=== PATIENT | female | born 1930 | race Caucasian/White ===

== ENCOUNTER 2017-01-09 11:00 | Outpatient (RCR) | END 2017-01-26 | LOC: NEWBEG 11:00 | PROVIDERS: ATTEND Psychiatry & Neurology Psychiatry | DX: F01.50 Vascular dementia, unspecified severity, without behavioral disturbance, psychotic disturbance, mood disturbance, and anxiety (principal); F41.9 Anxiety disorder, unspecified; F32.9 Major depressive disorder, single episode, unspecified | CPT/HCPCS: 90792 ==

== ENCOUNTER 2019-03-24 14:58 | Inpatient (IN) ==
[2019-03-24] MEDS ORDERED: NITROSTAT SL PRN (15:16)
[2019-03-24] MEDS ORDERED: ATROPINE SULFATE PFS IVP PRN (15:16)
[2019-03-24] MEDS ORDERED: TYLENOL PO PRN (15:16)
[2019-03-24] MEDS ORDERED: VISTARIL INJ IM PRN (15:16)
[2019-03-24] MEDS ORDERED: LASIX IVP STA (15:22)
[2019-03-24 16:21] VITALS: BMI 22.5
[2019-03-24] MEDS: K-DUR PO SCH (16:51)
[2019-03-24] MEDS: XANAX PO SCH (16:51)
--- NOTE | 2019-03-24 16:54 | DI ---
EXAM: Chest two views HISTORY: Shortness of air COMPARISON: None TECHNIQUE: Two views of the chest were performed FINDINGS: No airspace consolidation. Granulomas calcification. Bilateral peripheral scarring and/o r fibrosis suggested. There is no pleural effusion or pneumothorax. The heart is normal in size. T he mediastinal contour is normal. Questionable age indeterminate compression deformities in the lumb ar spine are very poorly visualized. IMPRESSION: 1. No acute cardiopulmonary process. Bilateral peripheral scarring and/or fibrosis suggested. 2. Questionable age indeterminate compression deformities in the lumbar spine are very poorly visual ized
[2019-03-24] MEDS: LEVODOPA PO SCH (17:10)
[2019-03-24] MEDS: CARBIDOPA PO SCH (17:10)
[2019-03-24] MEDS ORDERED: LASIX ONE (18:12)
[2019-03-24] MEDS ORDERED: NON-FORMULARY MEDICATION (Amantadine Hcl [Amantadine] 100 MG) PO SCH (21:00)
[2019-03-24] MEDS ORDERED: NON-FORMULARY MEDICATION (Paroxetine Hcl [Paxil] 30 MG) PO SCH (21:00)
[2019-03-24] MEDS: ARICEPT PO SCH (21:13)
[2019-03-24] MEDS: PRAVACHOL PO SCH (21:15)
[2019-03-24] MEDS: PIMAVANSERIN TARTRATE 34 MG PO SCH (21:15)
[2019-03-24] MEDS: SYMMETREL PO SCH (21:15)
[2019-03-24] MEDS: PAXIL PO SCH (21:15)
[2019-03-24] MEDS: LOPRESSOR PO SCH (21:15)
[2019-03-25] MEDS: SYMMETREL PO SCH ×2 (08:47→20:40)
[2019-03-25] MEDS: ASPIRIN EC PO SCH (08:47)
[2019-03-25] MEDS: VITAMIN D PO SCH (08:47)
[2019-03-25] MEDS: LOPRESSOR PO SCH ×2 (08:49→20:40)
[2019-03-25] MEDS: CLARITIN PO SCH (08:49)
[2019-03-25] MEDS: K-DUR PO SCH ×5 (08:49→20:41)
[2019-03-25] MEDS: MEGACE PO SCH (08:50)
[2019-03-25] MEDS: PLAVIX PO SCH (08:50)
[2019-03-25] MEDS: NORVASC PO SCH (08:50)
[2019-03-25] MEDS: DITROPAN PO SCH ×3 (08:50→20:41)
[2019-03-25] MEDS: XANAX PO SCH ×3 (08:51→17:27)
[2019-03-25] MEDS ORDERED: NON-FORMULARY MEDICATION (Cholecalciferol (Vitamin D3) [Vitamin D3] 1 CAP) PO SCH (09:00)
[2019-03-25] MEDS ORDERED: NON-FORMULARY MEDICATION (Amlodipine Besylate [Amlodipine Besylate] 10 MG) PO SCH (09:00)
[2019-03-25] MEDS ORDERED: FEXOFENADINE HCL 180 MG PO SCH (09:00)
[2019-03-25] MEDS ORDERED: ARICEPT PO SCH (09:00)
[2019-03-25] MEDS: LEVODOPA PO SCH ×3 (09:59→17:27)
[2019-03-25] MEDS: CARBIDOPA PO SCH ×3 (09:59→17:27)
[2019-03-25] MEDS: D3 PO SCH (10:05)
[2019-03-25] MEDS: [UNRECOGNIZED DRUG - OTHER] PO SCH (10:05)
[2019-03-25] MEDS: MAGNESIUM PO SCH (10:05)
[2019-03-25] MEDS: CALCIUM CARB PO SCH (10:05)
[2019-03-25] MEDS: ZINC PO SCH (10:05)
[2019-03-25] MEDS: CYANOCOBALAMIN PO SCH (10:06)
--- NOTE | 2019-03-25 13:25 | RS.PTINEVL ---
Subjective - Patient information Date of Evaluation: 03/25/19 Date of Arrival on Unit: 03/24/19 Admitted From:: Home Diagnosis: increased confusion, agitation Usual Living Arrangement: daughter Living Arrangement Comments: pt had been living in [place], however pt had to leave due to increased agitation and combativeness. Currently living with dtr. Home Environment: House, Stairs (few), Rail Medical History: CVA/TIA, Dementia, Arthritis Medical History Comments:: anxiety, depression, atrial flutter, DDD, hypothyroid , Parkinson's disease, LATEX ALLERGY?: No Medications: see chart Subjective Information/ Patient Comments:: pt states that she would like to try to walk. - Level of function Prior to this admission, the patient could do the following:: Partially Dependent Ambulation Current Level of Function: Partially Dependent Current Equipment Used at Home: cane, walker, shower chair, Interventions - Objective Patient Orientation: Person, Place Current Interventions: IV's Range of Motion - ROM Right Upper Extremity AROM: WFL's Left Upper Extremity AROM: WFL's Right Lower Extremity AROM: WFL's Left Lower Extremity AROM: WFL's Muscle Strength - Muscle Strength Right Upper Extremity Strength: Mild Weakness (grossly 4-/5,) Left Upper Extremity Strength: Mild Weakness (grossly 4-/5) Right Lower Extremity Strength: Mild Weakness (hip flex 3+/5, knee flex/ext 4-/5 , ankle DF/PF 4-/5) Left Lower Extremity Strength: Mild Weakness (hip flex 3+/5, knee flex/ext 4-/5 , ankle DF/PF 4-/5) Sensation - Sensation Right Upper Extremity Sensation: Intact/Normal Left Upper Extremity Sensation: Intact/Normal Right Lower Extremity Sensation: Intact/Normal Left Lower Extremity Sensation: Intact/Normal Palpation Palpation Findings: None/Normal Balance - Sitting Balance and Reactions Static Sitting Balance: Fair Dynamic Sitting Balance: Fair Sitting Equilibrium Reactions: Delayed Left, Delayed Right Sitting Protective Reactions: Delayed Left, Delayed Right - Standing Balance and Reactions Static Standing Balance: Poor Dynamic Standing Balance: Poor Standing Equilibrium Reactions: Delayed Left, Delayed Right Standing Protective Reactions: Delayed Left, Delayed Right Functional Mobility - Bed Mobility Rolling R/L: Min Assist Scooting: Min Assist Supine to Sit: Min Assist, 1 person assist - Transfers Sit to Stand: Min Assist, 2 person assist Stand to Sit: Min Assist, 1 person assist - Safety Awareness Safety Awareness: Poor AMRIT INDEX SCORE: n/a Ambulation - Ambulation Assistive Device Used: Rolling Walker Orthotic/Prosthetic Device: No Distance: 50ft x 2 with 1 seated rest period Assistance needed with Ambulation: Min Assist, 1 person assist, 2 person assist Gait Deviations: Forward posture, Short stride, Deviates from path Factors Affecting Ambulation: Decreased Balance, Weakness, Decreased Coordination, Decreased Safety, Cognitive Status, Limited Endurance Treatment time - Time with patient Length of Evaluation: 21 Total treatment time: 28 Patient Education - Education Patient Education: Activity Modification, Education of Plan of Care Teaching Recipient: Patient Teaching Methods: Discussion Assessment - Assessment Problem List:: Decreased level of function, Requires training/education, Decreased safety/Risk of falls, Weakness, Cognitive status limits abilities Rehab Potential: Fair Further Therapy Indicated?: Yes Candidate for Swing Bed for Therapy Services?: Feel pt may not be a candidate for swing bed due to cogntive status and prior level of function. Evaluation Complexity: HISTORY: Medium, EXAM OF BODY SYSTEMS: Medium, CLINICAL PRESENTATION: Medium, CLINICAL DECISION MAKING: Medium Short Term Goals GOAL #1: pt independent with initial HEP Goal to be met by: 03/28/19 GOAL #2: pt transfer sup to/from sit min to CGA x 1 Goal to be met by: 03/28/19 GOAL #3: Sit to/from stand min x 1 Goal to be met by: 03/28/19 GOAL #4: pt amb with rwx min x 1 80ft without rest period. Goal to be met by: 03/28/19 Gas Operation Manager Goals GOAL #1: pt transfers sit to/from stand CGA Goal to be met by: 03/30/19 GOAL #2: pt amb functional household distance with rwx CGA x 1 no LOB Goal to be met by: 03/30/19 GOAL #3: Improve dyn stand balance fair Goal to be met by: 03/30/19 Plan Plan of Care: Therapeutic EX, Therapeutic Activity Other:: gait training Frequency of Treatment: 1-2 X day, as tolerated Duration of Treatment: 6 days Anticipated Discharge Destination: Home Treatment Diagnosis (ICD 10 Codes): balance impaired R26.81. difficulty walking R 26.2 Has the Physician been added for Co-signature?: Yes
--- NOTE | 2019-03-25 14:35 | RS.OTINEVL ---
Subjective - Patient information Date of Evaluation: 03/25/19 Diagnosis: increased confusion, UTI PRECAUTIONS: At risk for fainting spells Usual Living Arrangement: With Others Living Arrangement Comments: Pt was living at [facility] and she became aggitated and had to move out to her daughters house. She has lived at her daughter's for the past 2 weeks. Pt has forgotten how to transfer, and take care of herself. Medical History Comments:: UTI, weakness, increased confusion, Leg edema, dizziness, has psychological problems where she will faint. Medications: "I am getting a little dizzy." - Level of function Prior to this admission, the patient could do the following:: Partially Dependent Ambulation Abilities prior to this admission: Pt was living at [facility] prior to living with her daughter. Pt uses a rolling walker at home. Current Level of Function: Partially Dependent Current Equipment Used at Home: cane, walker, shower chair, Pain Assessment - Pain Pain Score: 0 Interventions - Objective Patient Orientation: Person Current Interventions: IV's, Telemetry Observation: Pt is weak and confused and requires verbal cues to complete turn around and tranfers with RW. Pt requires verbal cues for all self cares. Interventions - ROM Right Upper Extremity AROM: WFL's Left Upper Extremity AROM: WFL's - Strength Right Upper Extremity Strength: Mild Weakness Left Upper Extremity Strength: Mild Weakness - Sensation Right Upper Extremity Sensation: Intact/Normal Left Upper Extremity Sensation: Intact/Normal Balance - Sitting Balance Static Sitting Balance: Poor Dynamic Sitting Balance: Poor - Standing Balance Static Standing Balance: Poor Dynamic Standing Balance: Poor ADL Skills - Self Feeding Self Feeding: Set Up Only - Grooming Grooming: Min Assist - Toilet Management Toileting Management: Min Assist Functional Mobility - Bed Mobility Rolling R/L: Min Assist Scooting: Min Assist Supine to Sit: Min Assist Sit to Supine: Min Assist - Transfers Sit to Stand: Mod Assist, 2 person assist Stand to Sit: Mod Assist, 2 person assist Stand Pivot Transfers: Min Assist, 2 person assist Comments:: Pt has 2 people assist due to the fainting without notice. - Ambulation Weight Bearing Status: FWB Assistive Device Used: Rollator Assistance needed with Ambulation: Min Assist - Safety Awareness Safety Awareness: Poor AMRIT INDEX SCORE: . Additional Treatment Performed - Time with patient Length of Evaluation: 25 Total treatment time: 30 Activities Do you enjoy playing games?: No Would you be interested in leaving your room for activities?: No Would you enjoy group activities?: No Do you have difficulty with your vision?: Yes Patient Interests:: Watching Television Patient Education Patient Education: Education of diagnosis, Home Exercise Program, Education of Plan of Care Teaching Recipient: Patient Teaching Methods: Discussion Assessment Problem List:: Decreased level of function, Requires training/education, Decreased safety/Risk of falls, Weakness Rehab Potential: Good Further Therapy Indicated?: Yes Evaluation Complexity: HISTORY: Medium, EXAM OF BODY SYSTEMS: Medium, CLINICAL DECISION MAKING: Medium Short Term Goals - Goals GOAL 1: Pt to increase Sit to stand to Min Assist with rollator walker for self car Goal to be met by: 03/30/19 GOAL 2: Pt to complete toileting CGA with rollator. Goal to be met by: 03/30/19 GOAL 3: Pt to increase activity tolerance to 10 minutes. Goal to be met by: 03/30/19 Shop Router Goals GOAL 1: Pt to increase to SUP for self care management. Goal to be met by: 04/01/19 GOAL 2: Pt to complete toileting Mod-I with rollator. Goal to be met by: 04/01/19 GOAL 3: Pt to increase activity tolerance to 10 minutes. Goal to be met by: 04/01/19 Plan Plan of Care: Therapeutic EX, Neuromuscular Re-Educ, Therapeutic Activity, Self- Care/Home Management Frequency of Treatment: 1-2 X day, as tolerated Duration of Treatment: 1 Week Anticipated [facility]charge [facility] Treatment Diagnosis (ICD 10 Codes): M62.81 General weakness, Z74.1 Need for assistance with personal care. Has the Physician been added for Co-signature?: Yes
[2019-03-25] MEDS: ARICEPT PO SCH (20:40)
[2019-03-25] MEDS: PIMAVANSERIN TARTRATE 34 MG PO SCH (20:41)
[2019-03-25] MEDS: PRAVACHOL PO SCH (20:41)
[2019-03-25] MEDS: PAXIL PO SCH (20:41)
[2019-03-26] MEDS: CARBIDOPA PO SCH ×3 (09:18→16:37)
[2019-03-26] MEDS: LEVODOPA PO SCH ×3 (09:18→16:37)
[2019-03-26] MEDS: VITAMIN D PO SCH (09:19)
[2019-03-26] MEDS: ASPIRIN EC PO SCH (09:19)
[2019-03-26] MEDS: MEGACE PO SCH (09:19)
[2019-03-26] MEDS: CLARITIN PO SCH (09:20)
[2019-03-26] MEDS: K-DUR PO SCH ×2 (09:20→16:38)
[2019-03-26] MEDS: PLAVIX PO SCH (09:20)
[2019-03-26] MEDS: LOPRESSOR PO SCH ×2 (09:20→20:52)
[2019-03-26] MEDS: NORVASC PO SCH (09:20)
[2019-03-26] MEDS: SYMMETREL PO SCH ×2 (09:20→20:51)
[2019-03-26] MEDS: DITROPAN PO SCH ×3 (09:20→20:51)
[2019-03-26] MEDS: XANAX PO SCH ×3 (09:20→16:37)
[2019-03-26] MEDS: MAGNESIUM PO SCH (09:21)
[2019-03-26] MEDS: CALCIUM CARB PO SCH (09:21)
[2019-03-26] MEDS: D3 PO SCH (09:21)
[2019-03-26] MEDS: ZINC PO SCH (09:21)
[2019-03-26] MEDS: [UNRECOGNIZED DRUG - OTHER] PO SCH (09:21)
[2019-03-26] MEDS: CYANOCOBALAMIN PO SCH (09:22)
[2019-03-26] MEDS: PIMAVANSERIN TARTRATE 34 MG PO SCH (20:50)
[2019-03-26] MEDS: ARICEPT PO SCH (20:51)
[2019-03-26] MEDS: PRAVACHOL PO SCH (20:51)
[2019-03-26] MEDS: PAXIL PO SCH (20:51)
[2019-03-27] MEDS: ASPIRIN EC PO SCH (08:06)
[2019-03-27] MEDS: K-DUR PO SCH ×2 (08:06→16:45)
[2019-03-27] MEDS: VITAMIN D PO SCH (08:06)
[2019-03-27] MEDS: LOPRESSOR PO SCH ×2 (08:06→20:35)
[2019-03-27] MEDS: PLAVIX PO SCH (08:06)
[2019-03-27] MEDS: CLARITIN PO SCH (08:07)
[2019-03-27] MEDS: XANAX PO SCH ×3 (08:07→16:45)
[2019-03-27] MEDS: SYMMETREL PO SCH ×2 (08:07→20:35)
[2019-03-27] MEDS: MEGACE PO SCH (08:07)
[2019-03-27] MEDS: NORVASC PO SCH (08:07)
[2019-03-27] MEDS: DITROPAN PO SCH ×3 (08:07→20:35)
[2019-03-27] MEDS: LEVODOPA PO SCH ×3 (08:08→17:16)
[2019-03-27] MEDS: CARBIDOPA PO SCH ×3 (08:08→17:16)
[2019-03-27] MEDS: CALCIUM CARB PO SCH (08:08)
[2019-03-27] MEDS: CYANOCOBALAMIN PO SCH (08:08)
[2019-03-27] MEDS: D3 PO SCH (08:08)
[2019-03-27] MEDS: [UNRECOGNIZED DRUG - OTHER] PO SCH (08:08)
[2019-03-27] MEDS: ZINC PO SCH (08:08)
[2019-03-27] MEDS: MAGNESIUM PO SCH (08:08)
[2019-03-27] MEDS: CIPRO PO SCH ×2 (11:05→20:35)
[2019-03-27] MEDS: PAXIL PO SCH (20:34)
[2019-03-27] MEDS: PRAVACHOL PO SCH (20:35)
[2019-03-27] MEDS: ARICEPT PO SCH (20:35)
[2019-03-27] MEDS: PIMAVANSERIN TARTRATE 34 MG PO SCH (20:36)
[2019-03-28] MEDS: CIPRO PO SCH (05:39)
[2019-03-28] MEDS: CARBIDOPA PO SCH ×2 (09:08→13:03)
[2019-03-28] MEDS: XANAX PO SCH ×2 (09:08→13:03)
[2019-03-28] MEDS: LEVODOPA PO SCH ×2 (09:08→13:03)
[2019-03-28] MEDS: VITAMIN D PO SCH (09:09)
[2019-03-28] MEDS: NORVASC PO SCH (09:09)
[2019-03-28] MEDS: SYMMETREL PO SCH (09:09)
[2019-03-28] MEDS: DITROPAN PO SCH ×2 (09:10→15:11)
[2019-03-28] MEDS: K-DUR PO SCH (09:10)
[2019-03-28] MEDS: ASPIRIN EC PO SCH (09:10)
[2019-03-28] MEDS: MEGACE PO SCH (09:10)
[2019-03-28] MEDS: PLAVIX PO SCH (09:10)
[2019-03-28] MEDS: D3 PO SCH (09:11)
[2019-03-28] MEDS: ZINC PO SCH (09:11)
[2019-03-28] MEDS: CYANOCOBALAMIN PO SCH (09:11)
[2019-03-28] MEDS: CLARITIN PO SCH (09:11)
[2019-03-28] MEDS: CALCIUM CARB PO SCH (09:11)
[2019-03-28] MEDS: [UNRECOGNIZED DRUG - OTHER] PO SCH (09:11)
[2019-03-28] MEDS: MAGNESIUM PO SCH (09:11)
[2019-03-28] MEDS: LOPRESSOR PO SCH (09:11)
--- NOTE | 2019-03-28 09:31 | PCM.PROG ---
Attending Provider: ATTENDING PROVIDER: Dr. GIOVANNY KAPOOR This patient is seen with Rose Gaitan, Nurse Practitioner. DATE OF SERVICE: 03/28/19 SUBJECTIVE: This 88 year old WHITE/ F was hospitalized 03/24/19. The patient is pleasantly confused. She is on Cipro for UTI and doing well. We will anticipate DC to custodial today for PT/OT. REVIEW OF SYSTEMS: CONSTITUTIONAL: No night sweats. No fatigue, malaise, lethargy. No fever or chills. HEENT: Eyes: No visual changes. No eye pain. No eye discharge. ENT: No runny nose. No epistaxis. No sinus pain. No odynophagia. No congestion. RESPIRATORY: No cough, no congestion. No hemoptysis. No shortness of breath. CARDIOVASCULAR: No angina symptoms. No CHF symptoms. No atypical chest pain for CAD. No palpitations. No orthopnea.. GASTROINTESTINAL: No abdominal pain. No nausea or vomiting. No diarrhea or constipation. No hematemesis. No hematochezia. GENITOURINARY: No urgency. No frequency. No dysuria. No hematuria. No obstructive symptoms. No discharge. No pain. No significant abnormal bleeding. MUSCULOSKELETAL: No musculoskeletal pain; no joint swelling. NEUROLOGICAL: Awake, alert, oriented to time, place and person. No headache. No neck pain. No syncope. No seizures. No dizziness. PSYCHIATRIC: Not anxious. No depression. No suicidal thoughts. No homicidal thoughts. Confused. SKIN: No rash. No lesions. No wounds. ENDOCRINE: No unexplained weight loss. No weight gain. HEMATOLOGIC/LYMPHATIC: No anemia. No purpura. No petechiae. No prolonged or excessive bleeding. No palpable lymph nodes. PHYSICAL EXAMINATION: GENERAL: The patient is awake, alert and oriented, lying in bed in no distress. VITAL SIGNS: Temperature 98.1 F, Pulse 65, Respiratory Rate 16, BP 117/63, Pulse Ox 97% HEENT: Head normocephalic, atraumatic. Eyes: Extraocular muscles are intact. Pupils are equal, round and reactive to light and accommodation. Ears: No lesions. Nose appeared normal. Throat: No exudate or erythema. NECK: Supple. No JVD, no carotid bruit. No lymphadenopathy or thyromegaly. LUNGS: Diminished breath sounds. Clear to auscultation. Percussion note normal. Chest symmetrical. HEART: S1, S2, no S3. No murmurs. No cyanosis or clubbing. No ascites. Pulses: Dorsalis pedis and posterior tibial pulses +1 to +2 both sides. ABDOMEN: Soft. Non-tender. Bowel sounds active. No CVA tenderness. No mass felt. EXTREMITIES: No edema. Full range of motion of all extremities, equal. NEUROLOGIC: No focal deficit. Cranial nerves II through XII are grossly intact. No headache, no double vision or headache. SKIN: Not dry. Intact. Turgor-normal. LYMPHATIC: No palpable lymph nodes/no lymphedema. MUSCULOSKELETAL: Normal joints with no swelling. Muscle tone is normal. LAB REVIEW: 03/28/19 04:00 03/28/19 04:00 03/28/19 04:00: Sodium 136.9, Potassium 4.29, Chloride 108.5 H, Carbon Dioxide 25.4, Anion Gap 7.29, BUN 19.5 H, Creatinine 0.90, Estimated GFR (MDRD) 59.00, BUN/Creatinine Ratio 21.66, Glucose 83.9, Calcium 8.48, Total Bilirubin 0.43, AST 28.4, ALT 17.7, Alkaline Phosphatase 72.8, Total Protein 6.29 L, Albumin 3.34 L, Globulin 2.95, Albumin/Globulin Ratio 1.13 03/28/19 04:00: WBC 5.73, RBC 3.99 L, Hgb 12.2, Hct 36.6 L, MCV 91.7, MCH 30.6, MCHC 33.3, RDW Coeff of Max 12.3, Plt Count 271, Immature Gran % (Auto) 0.3, Neut % (Auto) 44.5, Lymph % (Auto) 36.5, Kinney % (Auto) 13.8 H, Eos % (Auto) 4.0 , Baso % (Auto) 0.9, Immature Gran # (Auto) 0.0, Neut # (Auto) 2.6, Lymph # ( Auto) 2.1, Kinney # (Auto) 0.8, Eos # (Auto) 0.2, Baso # (Auto) 0.1 ASSESSMENT: Please see below. 1. UTI 2. Increased confusion, improved 3. Leg edema 4. Dementia with behavioral disturbances 5. Generalized weakness. PLAN: 1. Discharge to [facility] 2. Cipro 500mg BID for 5 days 3. Continue all home medications. 4. Lesion on right side of lesion on right side of now will refer to dermatology Plan and coordination of the patient's care discussed in the presence of Financial Sales Representative and nurse. SCRIBED BY: Lucy SUBRAMANIANist scribed while in presence of service performed by Dr. Kapoor/Rose Gaitan APRN on 03/28/19 ([id number])
--- NOTE | 2019-03-28 12:16 | CM.DICTOOL ---
ADMISSION: 03/24/19 14:58 DISCHARGE: 2018 DATE OF SERVICE: 03/28/19 FINAL DIAGNOSIS UTI - KLEBSIELLA PNEUMONIA INCREASED CONFUSION, IMPROVED LEG EDEMA DEMENTIA W/ BEHAVIORAL DISTURBANCES GENERALIZED WEAKNESS MACULAR DEGENERATION CATARACTS ANEMIA HX. FAILURE TO THRIVE HTN ORTHOSTATIC HYPOTENSION IRREGULAR HEART RHYTHM DYSLIPIDEMIA PARKINSON'S DEMENTIA W/ BEHAVIOR DISTURBANCE ASTHMA SLEEP APNEA OA DJD HYPOTHYROIDISM DEPRESSION/ANXIETY URINARY FREQ/URGENCY LAST VITALS Temp Pulse Resp BP Pulse Ox 98.1 F 65 16 117/63 97 03/28/19 04:52 03/28/19 04:52 03/28/19 04:52 03/28/19 04:52 03/28/19 04:52 TAKE THESE MEDICATIONS AT HOME Acetaminophen (Tylenol) 500 mg PO Q4H PRN PRN Reason: PAIN Alprazolam (Xanax) 0.25 mg PO 0800,1200,1700 [facility] Last Admin: 03/28/19 09:08 Dose: 0.25 mg Amantadine HCl (Symmetrel) 100 mg PO BID [facility] Last Admin: 03/28/19 09:09 Dose: 100 mg Amlodipine Besylate (Norvasc) 10 mg PO DAILY [facility] Last Admin: 03/28/19 09:09 Dose: 10 mg Cholecalciferol (Vitamin D) 1,000 unit PO DAILY [facility] Last Admin: 03/28/19 09:09 Dose: 1,000 unit Ciprofloxacin (Cipro) 500 mg PO BIDCIPRO [facility] Stop: 04/03/19 10:38 Last Admin: 03/28/19 05:39 Dose: 500 mg Clopidogrel Bisulfate (Plavix) 75 mg PO DAILY [facility] Last Admin: 03/28/19 09:10 Dose: 75 mg Donepezil HCl (Aricept) 10 mg PO BEDTIME [facility] Last Admin: 03/27/19 20:35 Dose: 10 mg Loratadine (Claritin) 10 mg PO DAILY [facility] Last Admin: 03/28/19 09:11 Dose: 10 mg Fexofenadine HDL 180 mg PO DAILY [facility] Last Admin: n/a Megestrol Acetate (Megace) 40 mg PO DAILY [facility] Last Admin: 03/28/19 09:10 Dose: 40 mg Metoprolol Tartrate (Lopressor) 25 mg PO BID [facility] Last Admin: 03/28/19 09:11 Dose: 25 mg Antiox.Mv No.10/Omeg3s/Lut/Manju [I-Caps With Lutein-Brooten 3 Sfg]) 1 cap PO DAILY [facility] Last Admin: 03/28/19 09:08 Dose: 1 cap Calcium Carb/D3/Magnesium/Zinc [Kmmpnsx-Mch-Vdoy-Vit D Tablet]) 1 cap PO DAILY [facility] Last Admin: 03/28/19 09:11 Dose: Not Given Carbidopa/Levodopa [Sinemet 10-100 Mg Tablet]) 1 cap PO 0800,1200,1700 [facility] Last Admin: 03/28/19 09:08 Dose: 1 cap Cyanocobalamin (Vitamin B-12) [Vitamin B-12]) 1 cap PO DAILY [facility] Last Admin: 03/28/19 09:11 Dose: Not Given Krill/Om-3/Dha/Epa/Phospho/Ast [Megared Brooten-3 Krill Oil Sfgl]) 350 mg PO DAILY [facility] Last Admin: 03/28/19 09:11 Dose: Not Given Pimavanserin Tartrate [Nuplazid]) 34 mg PO BEDTIME [facility] Last Admin: 03/27/19 20:36 Dose: 34 mg Oxybutynin Chloride (Ditropan) 5 mg PO TID [facility] Last Admin: 03/28/19 09:10 Dose: 5 mg Paroxetine HCl (Paxil) 30 mg PO BEDTIME [facility] Last Admin: 03/27/19 20:34 Dose: 30 mg Potassium Chloride (K-Dur) 20 meq PO BIDWM [facility] Last Admin: 03/28/19 09:10 Dose: 20 meq Pravastatin Sodium (Pravachol) 20 mg PO BEDTIME [facility] Last Admin: 03/27/19 20:35 Dose: 20 mg ALLERGIES epinephrine Adverse Reaction (Verified 03/24/19 16:13) lidocaine Adverse Reaction (Uncoded 03/24/19 16:13) DISCONTINUED MEDICATIONS None NEW PRESCRIPTIONS: CIPRO 500 MG ONE TABLET BY MOUTH TWICE A DAY FOR FIVE DAYS LAST DOSES TO BE ADMINISTERED ON ThursdayMarch XANAX 0.25 MG ONE TABLET BY MOUTH THREE TIMES A DAY. TIMES TO BE ADMINISTERED 0800, 1200, 1700. SMOKING: NON SMOKER DISEASE SPECIFIC EDUCATION: UTI LEG EDEMA ELEVATE EXTREMITIES CONFUSION/DEMENTIA CIPRO REFERRAL TO DR. [facility] LAB REVIEW: 03/28/19 04:00 03/28/19 04:00 03/28/19 04:00: Sodium 136.9, Potassium 4.29, Chloride 108.5 H, Carbon Dioxide 25.4, Anion Gap 7.29, BUN 19.5 H, Creatinine 0.90, Estimated GFR (MDRD) 59.00, BUN/Creatinine Ratio 21.66, Glucose 83.9, Calcium 8.48, Total Bilirubin 0.43, AST 28.4, ALT 17.7, Alkaline Phosphatase 72.8, Total Protein 6.29 L, Albumin 3.34 L, Globulin 2.95, Albumin/Globulin Ratio 1.13 03/28/19 04:00: WBC 5.73, RBC 3.99 L, Hgb 12.2, Hct 36.6 L, MCV 91.7, MCH 30.6, MCHC 33.3, RDW Coeff of Max 12.3, Plt Count 271, Immature Gran % (Auto) 0.3, Neut % (Auto) 44.5, Lymph % (Auto) 36.5, Benton % (Auto) 13.8 H, Eos % (Auto) 4.0 , Baso % (Auto) 0.9, Immature Gran # (Auto) 0.0, Neut # (Auto) 2.6, Lymph # ( Auto) 2.1, Benton # (Auto) 0.8, Eos # (Auto) 0.2, Baso # (Auto) 0.1 PLAN: DISCHARGE TO [facility] TODAY 2018 DIET: REGULAR WITH THIN LIQUIDS ENCOURAGE FLUIDS ACTIVITY: UP TO DINING FOR MEALS VITAL SIGNS DAILY FOR ONE WEEK, THEN WEEKLY WEIGHT MONTHLY CBC WITH DIFF, CMP IN ONE WEEK CBC WITH DIFF AND CMP EVERY 3 MONTHS TSH, LIPIDS EVERY 6 MONTHS PT/OT EVALUATE AND TREAT SPEECH THERAPY CONSULT PORCELAIN ENAMELER CONSULT FOR OPTIMAL NUTRITION INTAKE INCONTINENT CARE NEEDED DECUBITUS PRECAUTIONS NEEDED MAY PARTICIPATE IN HALFWAY ACTIVITY PROGRAM PATIENT TO BE SEEN ON HALFWAY ROUNDS BY ROSE THOMPSON APRN IN 7-10 DAYS. AN APPOINTMENT HAS BEEN SCHEDULED WITH DR. MYRA GALE (HOSPICE/HOME HEALTH AIDE) AT [facility] ON ThursdayMarch, AT 9 AM. FAMILY REQUESTED REFERRAL RELATED TO A SMALL RED LESION ON THE RIGHT SIDE OF HER NOSE. [facility] [address] [place] [id number] CODE STATUS: DO NOT RESUSCITATE MS. AVENDAÑO IS ALERT AND ORIENTED TO SELF. SHE IS PLEASANTLY CONFUSED THIS MORNING. NO EPISODES OF AGITATION OR BEHAVIORAL OUTBURSTS HAVE BEEN NOTED DURING THIS ADMISSION. NO COMPLAINTS OF DIZZINESS. GENERALIZED WEAKNESS IS NOTED. I HAVE SPOKEN WITH YOVANY (DAUGHTER/POA) SHE IS AGREEABLE WITH HER MOMS DISCHARGE TO [facility] FOR PHYSICAL AND OCCUPATIONAL THERAPY FOR SHORT TERM REHAB. YOVANY STATES HER GOAL IS TO HAVE HER MOM GET STRONGER THEN MOVE HER TO A "LOCKED SUPPORTIVE LIVING" FACILITY. MS. MCADAMS IS ABLE TO FEED HERSELF AND IS TOLERATING A REGULAR DIET WITHOUT ANY DIFFICULTY. SHE IS ALSO ABLE TO TAKE HER MEDICATIONS WHOLE WITH WATER WITHOUT DIFFICULTY. SHE AMBULATES WITH ONE ASSIST AND A ROLLING WALKER, GAIT IS UNSTEADY WITH SHUFFLING ALSO NOTED. SHE DENIES BURNING UPON URINATION AND WILL CONTINUE TO RECEIVE ORAL CIPRO ON DISCHARGE FOR A TOTAL LENGTH OF SEVEN DAYS. HYDRATION STATUS IS ADEQUATE BUT SHE DOES NEED ENCOURAGEMENT TO DRINK THROUGHOUT THE DAY. SHE IS NORMALLY CONTINENT OF BOWEL AND BLADDER, LAST BM 03/27. APPETITE IS GOOD. SKIN IS INTACT. Torito Hare M.D. Rose Thompson APRN
[2019-03-28 15:30] VITALS: BP 116/62; TEMP 98.3
--- NOTE | 2019-04-05 14:52 | DS ---
DATE OF SERVICE: 03/28/19 FINAL DIAGNOSIS: 1. UTI - KLEBSIELLA PNEUMONIA 2. INCREASED CONFUSION, IMPROVED 3. LEG EDEMA 4. DEMENTIA W/ BEHAVIORAL DISTURBANCES 5. GENERALIZED WEAKNESS 6. MACULAR DEGENERATION 7. CATARACTS 8. ANEMIA 9. HISTORY. FAILURE TO THRIVE 10.HYPERTENSION 11.ORTHOSTATIC HYPOTENSION 12.IRREGULAR HEART RHYTHM 13.DYSLIPIDEMIA 14.PARKINSON'S 15.DEMENTIA W/ BEHAVIOR DISTURBANCE 16.ASTHMA 17.SLEEP APNEA 18.OSTEOARTHRITIS 19.DJD 20.HYPOTHYROIDISM 21.DEPRESSION/ANXIETY 22.URINARY FREQ/URGENCY LAST VITALS: Temp Pulse Resp BP Pulse Ox 98.1 F 65 16 117/63 97 03/28/19 04:52 03/28/19 04:52 03/28/19 04:52 03/28/19 04:52 03/28/19 04:52 DISCHARGE INSTRUCTIONS: DISCHARGE TO [facility] TODAY 2018. VITAL SIGNS DAILY FOR ONE WEEK, THEN WEEKLY. WEIGHT MONTHLY. CBC WITH DIFF, CMP IN ONE WEEK. CBC WITH DIFF AND CMP EVERY 3 MONTHS. TSH, LIPIDS EVERY 6 MONTHS. PT/OT EVALUATE AND TREAT. SPEECH THERAPY CONSULT. DRY CELL ASSEMBLY SUPERVISOR CONSULT FOR OPTIMAL NUTRITION INTAKE. INCONTINENT CARE NEEDED. DECUBITUS PRECAUTIONS NEEDED. MAY PARTICIPATE IN JAIL ACTIVITY PROGRAM. PATIENT TO BE SEEN ON JAIL ROUNDS BY ROLANDO THOMPSON APRN IN 7-10 DAYS. AN APPOINTMENT HAS BEEN SCHEDULED WITH DR. MYRA GALE (GRAIN BROKER) AT [facility] ON ThursdayMarch, AT 9 AM. FAMILY REQUESTED REFERRAL RELATED TO A SMALL RED LESION ON THE RIGHT SIDE OF HER NOSE. [facility] [address] [place] [id number] CODE STATUS: DO NOT RESUSCITATE TAKE THESE MEDICATIONS AT HOME: Acetaminophen (Tylenol) 500 mg PO Q4H PRN Alprazolam (Xanax) 0.25 mg PO 0800,1200,1700 MADELYN Amantadine HCl (Symmetrel) 100 mg PO BID MADELYN Amlodipine Besylate (Norvasc) 10 mg PO DAILY MADELYN Cholecalciferol (Vitamin D) 1,000 unit PO DAILY MADELYN Ciprofloxacin (Cipro) 500 mg PO BIDCIPRO MADELYN Clopidogrel Bisulfate (Plavix) 75 mg PO DAILY MADELYN Donepezil HCl (Aricept) 10 mg PO BEDTIME MADELYN Loratadine (Claritin) 10 mg PO DAILY MADELYN Fexofenadine HDL 180 mg PO DAILY MADELYN Megestrol Acetate (Megace) 40 mg PO DAILY MADELYN Metoprolol Tartrate (Lopressor) 25 mg PO BID MADELYN Antiox.Mv No.10/Omeg3s/Lut/Manju [I-Caps With Lutein-[place] 3 Sfg]) 1 cap PO DAILY MADELYN Calcium Carb/D3/Magnesium/Zinc [Lyunhlu-Zso-Ljin-Vit D Tablet]) 1 cap PO DAILY MADELYN Carbidopa/Levodopa [Sinemet 10-100 Mg Tablet]) 1 cap PO 0800,1200,1700 MADELYN Cyanocobalamin (Vitamin B-12) [Vitamin B-12]) 1 cap PO DAILY MADELYN Krill/Om-3/Dha/Epa/Phospho/Ast [Megared [place]-3 Krill Oil Sfgl]) 350 mg PO DAILY MADELYN Pimavanserin Tartrate [Nuplazid]) 34 mg PO BEDTIME MADELYN Oxybutynin Chloride (Ditropan) 5 mg PO TID MADELYN Paroxetine HCl (Paxil) 30 mg PO BEDTIME MADELYN Potassium Chloride (K-Dur) 20 meq PO BIDWM MADELYN Pravastatin Sodium (Pravachol) 20 mg PO BEDTIME MADELYN ALLERGIES: epinephrine Adverse Reaction (Verified 03/24/19 16:13) lidocaine Adverse Reaction (Uncoded 03/24/19 16:13) DISCONTINUED MEDICATIONS: None NEW PRESCRIPTIONS: CIPRO 500 MG ONE TABLET BY MOUTH TWICE A DAY FOR FIVE DAYS LAST DOSES TO BE ADMINISTERED ON ThursdayMarch XANAX 0.25 MG ONE TABLET BY MOUTH THREE TIMES A DAY. TIMES TO BE ADMINISTERED 0800, 1200, 1700. SMOKING: NON SMOKER DISEASE SPECIFIC EDUCATION: UTI LEG EDEMA ELEVATE EXTREMITIES CONFUSION/DEMENTIA CIPRO REFERRAL TO [facility] DIET: REGULAR WITH THIN LIQUIDS ENCOURAGE FLUIDS ACTIVITY: UP TO DINING FOR MEALS HOSPITAL COURSE: This is a white female who was a direct admit from our office with increased confusion and generalized weakness. She has history of dementia and anxiety. She was also having worsening leg edema. She was admitted and chest x-ray was normal. Leg edema improved with elevation in the legs. U/A was abnormal. Urine culture was positive for Klebsiella. She was placed on Cipro 500mg PO BID. She was given one dose of Rocephin. Her confusion has improved with treatment of the UTI. Kidney function was slightly elevated initially showing mild dehydration which has improved with slow IV fluids. Again leg improved with elevation of the legs. I think she keeps them hanging. She had no behavioral disturbances here. She has has worsening generalized weakness and confusion. She had been at [facility] but they have told the family that she will be unable to return there so the family has opted to send her to [facility] to see if she can undergo some physical therapy for weakness. She is going to go there today in stable condition. She does have a lesion on her nose that has been there for some time. Family is concerned. We have set up an appointment with Dr. Gale's office Dermatology for April 22 at 9AM. I think the goal of the family after her going through therapy is to eventually move her to the dementia supportive facility however given her age I don't know how much improvement she can make at this time but that is the ultimate goal. We will discharge her today in stable condition. She is continue Cipro 500mg BID for the next 5 days with a CBC and CMP in one week. We will follow with her at the detention. TIME SPENT: More than 60 minutes. JASON
--- NOTE | 2019-04-08 14:36 | PN ---
DATE OF SERVICE: 03/25/19 SUBJECTIVE: The patient examined while lying in bed. She had a good night. No behavior as she is pleasantly confused. Potassium slightly low today at 3.2. Leg edema slightly improved with elevation of legs. REVIEW OF SYSTEMS: CONSTITUTIONAL: Weakness. No night sweats. No fatigue, malaise, lethargy. No fever or chills. HEENT: Eyes: No visual changes. No eye pain. No eye discharge. ENT: No runny nose. No epistaxis. No sinus pain. No sore throat. No odynophagia. No congestion. RESPIRATORY: No cough, no congestion. No hemoptysis. No shortness of breath. CARDIOVASCULAR: No angina symptoms. No CHF symptoms. No atypical chest pain for CAD. No palpitations. No PND. No orthopnea. GASTROINTESTINAL: No abdominal pain. No nausea or vomiting. No diarrhea or constipation. No hematemesis. No hematochezia. GENITOURINARY: No urgency. No frequency. No dysuria. No hematuria. No obstructive symptoms. No discharge. No pain. No significant abnormal bleeding. MUSCULOSKELETAL: No musculoskeletal pain; no joint swelling. NEUROLOGICAL: Positive for confusion. No headache. No neck pain. No syncope. No seizures. No dizziness. PSYCHIATRIC: Not anxious. No depression. No suicidal thoughts. No homicidal thoughts. SKIN: No rash. No lesions. No wounds. ENDOCRINE: No unexplained weight loss. No weight gain. HEMATOLOGIC/LYMPHATIC: No anemia. No purpura. No petechiae. No prolonged or excessive bleeding. No palpable lymph nodes. PHYSICAL EXAMINATION: GENERAL: Oriented to person only. VITAL SIGNS: Temperature 98, pulse 75, respiratory rate 20, BP 105/71, 02 sat by pulse oximetry 92. HEENT: Head normocephalic, atraumatic. Eyes: Extraocular muscles are intact. Pupils are equal, round and reactive to light and accommodation. Ears: No lesions. Nose appeared normal. Throat: No exudate or erythema. NECK: Supple. No JVD, no carotid bruit. No lymphadenopathy or thyromegaly. LUNGS: Diminished breath sounds. Clear to auscultation. Percussion note normal. Chest symmetrical. HEART: S1, S2, no S3. No murmurs. No cyanosis or clubbing. No ascites. Pulses: Dorsalis pedis and posterior tibial pulses +1 to +2 bilaterally. ABDOMEN: Soft. Nontender. Bowel sounds active. No CVA tenderness. No mass felt. EXTREMITIES: Trace bilateral leg edema. Full range of motion of all extremities, equal. NEUROLOGIC: No focal deficit. Cranial nerves II through XII are grossly intact. No headache, no double vision or headache. SKIN: Not dry. Intact. Turgor - normal. LYMPHATIC: No palpable lymph nodes/no lymphedema. MUSCULOSKELETAL: Normal joints with no swelling. Muscle tone is normal. LABS: WBC 5.33, hemoglobin 13.4, platelets 277, hematocrit 39.8. Sodium 138.7, chloride 103.5, BUN 13.0, glucose 89.4, K+3.28, c0228.2, creatinine 0.64. ASSESSMENT: 1. Increased confusion. 2. Leg edema slightly improved. 3. Generalized weakness. PLAN: 1. Nursing staff to get UA, has not been done yet. 2. She is to have 20 mEq Potassium q.i.d. today and then start twice daily tomorrow. 3. Continue IV fluids NS at 75 cc/hr. 4. Will follow closely. TIME SPENT: More than 30 minutes. Plan and coordination of the patient's care discussed in the presence of nurse. JASON
--- NOTE | 2019-04-14 13:41 | PN ---
DATE OF SERVICE: 03/25/19 SUBJECTIVE: The patient was seen and examined with the nurse practitioner. The patient's dementia is stable. Cardiovascular status is stable. Respiratory status is stable. PLAN: 1. Continue the same medication. 2. The patient is waiting to be discharged to the longterm. TIME SPENT: More than 30 minutes. Plan and coordination of the patient's care discussed in the presence of nurse. JASON
--- NOTE | 2019-04-14 14:02 | PN ---
DATE OF SERVICE: 03/26/19 SUBJECTIVE: 80-year-old white female hospitalized with increased confusion, leg edema, weakness. The patient this morning is sitting up and eating breakfast, is up and about. She is doing practically all activities of daily living except for bathing. She needs a bath. REVIEW OF SYSTEMS: CONSTITUTIONAL: No night sweats. No fatigue, malaise, lethargy. No fever or chills. HEENT: Eyes: No visual changes. No eye pain. No eye discharge. ENT: No runny nose. No epistaxis. No sinus pain. No sore throat. No odynophagia. No congestion. RESPIRATORY: No cough, no congestion. No hemoptysis. No shortness of breath. CARDIOVASCULAR: No angina symptoms. No CHF symptoms. No atypical chest pain for CAD. No palpitations. No PND. No orthopnea. GASTROINTESTINAL: No abdominal pain. No nausea or vomiting. No diarrhea or constipation. No hematemesis. No hematochezia. GENITOURINARY: No urgency. No frequency. No dysuria. No hematuria. No obstructive symptoms. No discharge. No pain. No significant abnormal bleeding. MUSCULOSKELETAL: No musculoskeletal pain; no joint swelling. NEUROLOGICAL: Confusion. No headache. No neck pain. No syncope. No seizures. No dizziness. PSYCHIATRIC: Not anxious. No depression. No suicidal thoughts. No homicidal thoughts. SKIN: No rash. No lesions. No wounds. ENDOCRINE: No unexplained weight loss. No weight gain. HEMATOLOGIC/LYMPHATIC: No anemia. No purpura. No petechiae. No prolonged or excessive bleeding. No palpable lymph nodes. PHYSICAL EXAMINATION: VITAL SIGNS: Temperature 98, pulse 69, respiratory rate 20, BP 150/70, pulse ox 97%. HEENT: Head normocephalic, atraumatic. Eyes: Extraocular muscles are intact. Pupils are equal, round and reactive to light and accommodation. Ears: No lesions. Nose appeared normal. Throat: No exudate or erythema. NECK: Supple. No JVD, no carotid bruit. No lymphadenopathy or thyromegaly. LUNGS: Decreased breath sounds but clear to auscultation. Percussion note normal. Chest symmetrical. HEART: S1, S2, no S3. No murmurs. No cyanosis or clubbing. No ascites. Pulses: Dorsalis pedis and posterior tibial pulses +1 to +2 bilaterally. ABDOMEN: Soft. Nontender. Bowel sounds active. No CVA tenderness. No mass felt. EXTREMITIES: No edema. Full range of motion of all extremities, equal. NEUROLOGIC: No focal deficit. Cranial nerves II through XII are grossly intact. No headache, no double vision or headache. SKIN: Not dry. Intact. Turgor - normal. LYMPHATIC: No palpable lymph nodes/no lymphedema. MUSCULOSKELETAL: Normal joints with no swelling. Muscle tone is normal. LABS: Hemoglobin 13.6, hematocrit 41, WBC 5,100, normal differential. Creatinine 0.7, BUN 14, potassium 4.5. ASSESSMENT: 1. CONFUSION/DEMENTIA SEEMS TO BE STABLE. 2. LEG EDEMA SEEMS TO BE RESOLVING. PLAN: 1. Continue the same treatment. 2. Encourage the patient to eat. 3. The patient is waiting for fpc placement. TIME SPENT: More than 30 minutes. Plan and coordination of the patient's care discussed in the presence of nurse. JASON
--- NOTE | 2019-04-14 14:18 | PN ---
DATE OF SERVICE: 03/27/19 SUBJECTIVE: 88-year-old white female hospitalized with leg edema, weakness, dizziness. The patient is a candidate for a fdc and they are waiting for her to be discharged very likely tomorrow. In the meantime, the patient's urine cultures came back reported as gram negative rods. Very likely the patient may have low grade infection that could have caused more confusion and weakness. The patient will be starsted on Cipro. The patient is sitting up in the chair and ready to eat. REVIEW OF SYSTEMS: CONSTITUTIONAL: No night sweats. No fatigue, malaise, lethargy. No fever or chills. HEENT: Eyes: No visual changes. No eye pain. No eye discharge. ENT: No runny nose. No epistaxis. No sinus pain. No sore throat. No odynophagia. No congestion. RESPIRATORY: No cough, no congestion. No hemoptysis. No shortness of breath. CARDIOVASCULAR: No angina symptoms. No CHF symptoms. No atypical chest pain for CAD. No palpitations. No PND. No orthopnea. GASTROINTESTINAL: Appetite seems to have improved. No abdominal pain. No nausea or vomiting. No diarrhea or constipation. No hematemesis. No hematochezia. GENITOURINARY: No urgency. No frequency. No dysuria. No hematuria. No obstructive symptoms. No discharge. No pain. No significant abnormal bleeding. MUSCULOSKELETAL: No musculoskeletal pain; no joint swelling. NEUROLOGICAL: No headache. No neck pain. No syncope. No seizures. No dizziness. PSYCHIATRIC: Not anxious. No depression. No suicidal thoughts. No homicidal thoughts. SKIN: No rash. No lesions. No wounds. ENDOCRINE: No unexplained weight loss. No weight gain. HEMATOLOGIC/LYMPHATIC: No anemia. No purpura. No petechiae. No prolonged or excessive bleeding. No palpable lymph nodes. PHYSICAL EXAMINATION: VITAL SIGNS: Temperature 97.8, pulse 66, respiratory rate 18, blood pressure 140/60, pulse ox 96%. HEENT: Head normocephalic, atraumatic. Eyes: Extraocular muscles are intact. Pupils are equal, round and reactive to light and accommodation. Ears: No lesions. Nose appeared normal. Throat: No exudate or erythema. NECK: Supple. No JVD, no carotid bruit. No lymphadenopathy or thyromegaly. LUNGS: Decreased breath sounds but clear to auscultation. Percussion note normal. Chest symmetrical. HEART: S1, S2, no S3. No murmurs. No cyanosis or clubbing. No ascites. Pulses: Dorsalis pedis and posterior tibial pulses +1 to +2 bilaterally. ABDOMEN: Soft. Nontender. Bowel sounds active. No CVA tenderness. No mass felt. EXTREMITIES: No edema. Full range of motion of all extremities, equal. NEUROLOGIC: The patient is alert but confused. Disoriented to time, date, person, and place. No focal deficit. Cranial nerves II through XII are grossly intact. No headache, no double vision or headache. SKIN: Not dry. Intact. Turgor - normal. LYMPHATIC: No palpable lymph nodes/no lymphedema. MUSCULOSKELETAL: Normal joints with no swelling. Muscle tone is normal. LABS: Hemoglobin 12.8, hematocrit 38, WBC 5,200, normal differential. Creatinine 0.7, BUN 18, potassium 4.2. ASSESSMENT: 1. DEMENTIA 2. LEG EDEMA SEEMS TO HAVE RESOLVED 3. WEAKNESS AND DIZZINESS 4. URINARY TRACT INFECTION WITH GRAM NEGATIVE RODS PLAN: 1. Will start Cipro 500 mg twice a day for 7 days. 2. Continue to encourage the patient to eat. TIME SPENT: More than 30 minutes. Plan and coordination of the patient's care discussed in the presence of nurse. JASON
--- NOTE | 2019-04-14 14:21 | PN ---
DATE OF SERVICE: 03/28/19 SUBJECTIVE: Ms. Whaley was seen and examined in Room 112 with nurse practitioner. The patient's condition is stable. Urinary tract infection is under control. The patient has been on Cipro. The patient's dementia is stable with some improvement. She is alert, confused but that has improved. The patient is going to be discharged to the care home. TIME SPENT: More than 30 minutes. Plan and coordination of the patient's care discussed in the presence of nurse. JASON
--- NOTE | 2019-04-14 14:22 | PN ---
BILLING 03/24/19 ADMISSION DAY LEVEL 5 03/25/19 INTERMEDIATE 03/26/19 INTERMEDIATE 03/27/19 INTERMEDIATE 03/28/19 FINAL DAY - DISCHARGE MTDD
== END 2019-03-28 15:35 | DRG 690 ==
LOC: MEDSURG B 14:58
PROVIDERS: ADMIT Internal Medicine; ATTEND Internal Medicine

== ENCOUNTER 2020-04-24 16:08 | Inpatient (IN) ==
[2020-04-24] MEDS ORDERED: ATROPINE SULFATE PFS IVP PRN (16:40)
[2020-04-24] MEDS ORDERED: NITROSTAT SL PRN (16:40)
[2020-04-24] MEDS ORDERED: TYLENOL PO PRN ×2 (16:40→17:38)
[2020-04-24] MEDS ORDERED: VISTARIL INJ IM PRN (16:40)
[2020-04-24 16:50] VITALS: BMI 23.0
[2020-04-24 17:07] LABS: BASOPHILS % (AUTO) 0.5 % (0.0-3.0); EOSINOPHILS # (AUTO) 0.1 K/ul (0.0-0.7); EOSINOPHILS % (AUTO) 1.4 % (0.0-7.0); HEMATOCRIT 38.8 % (37.0-47.0); HEMOGLOBIN 12.8 g/dl (12.0-16.0); IMMATURE GRANULOCYTE % (AUTO) 0.2 % (0.0-5.0); LYMPHOCYTES # (AUTO) 1.8 K/uL (0.60-3.4); LYMPHOCYTES % (AUTO) 31.5 (10.0-50.0); MEAN CORPUSCULAR HEMOGLOBIN 30.4 pg (27.0-31.0); MEAN CORPUSCULAR VOLUME 92.2 fl (81.0-99.0); MONOCYTES # (AUTO) 0.7 K/uL (0.4-2.0); MONOCYTES % (AUTO) 11.4 (0-10); NEUTROPHILS # (AUTO) 3.2 K/ul (2.0-6.9); PLATELET COUNT 285 10^3/uL (140-440); RDW COEFFICIENT OF VARIATION 12.2 % (11.6-14.8); RED BLOOD COUNT 4.21 10^6/ul (4.20-5.40); WHITE BLOOD COUNT 5.81 K/ul (4.6-10.2)
[2020-04-24 17:19] LABS: ALBUMIN 3.47 g/dL (3.5-5.0); ALKALINE PHOSPHATASE 70.5 U/L (53-141); ASPARTATE AMINO TRANSFERASE 28.2 U/L (14-36); BILIRUBIN,TOTAL 0.4 mg/dL (0.2-1.3); BLOOD UREA NITROGEN 16.7 mg/dL (7-17); CALCIUM 8.91 mg/dL (8.4-10.2); CHLORIDE 103.7 mmol/L (98-107); CREATININE 0.8 mg/dL (0.60-1.30); GLUCOSE 104.1 mg/dL (74-106); POTASSIUM 3.83 mmol/L (3.5-5.1); SODIUM 136.9 mmol/L (134.5-145); TOTAL PROTEIN 6.62 g/dL (6.3-8.2)
[2020-04-24 17:26] LABS: ABG BASE EXCESS 3.2 (-2.0-2.0); ABG PH 7.46 (7.35-7.45)
[2020-04-24 17:27] LABS: ABG OXYGEN SATURATION 97.7 % (95-100); ABG TCO2 28.2 (22.0-28.0)
--- NOTE | 2020-04-24 17:43 | DI ---
EXAM: Chest single view Date: 04/24/2020 Comparison: Chest x-ray March 24, 2019 History: Exertional short of breath FINDINGS: AP view of the chest obtained. The bilateral lung apices are obscured by the patient's hea d shadow and a right hand shadow. Cardiac silhouette is normal. There is mild pulmonary vascular con gestion with bilateral diffuse interstitial edema or pneumonia. Visualized lungs are clear. No cons olidation, pleural effusion, or evidence of pneumothorax. No acute fractures in the chest. Impression: Pulmonary vascular congestion with bilateral diffuse interstitial edema or pneumonia.
[2020-04-24] MEDS ORDERED: XANAX PO PRN (17:47)
[2020-04-24 17:49] LABS: THYROID STIMULATING HORMONE 3.4 uIU/L (0.465-4.68)
[2020-04-24] MEDS: PRAVACHOL PO SCH (20:47)
[2020-04-24] MEDS: PAXIL PO SCH (20:48)
[2020-04-24] MEDS ORDERED: K-DUR PO SCH (21:00)
[2020-04-24] MEDS ORDERED: PAXIL PO SCH (21:00)
[2020-04-24] MEDS ORDERED: CARBIDOPA LEVODOPA PO SCH (21:00)
[2020-04-24] MEDS ORDERED: LOPRESSOR PO SCH ×2 (21:00)
[2020-04-24] MEDS: SODIUM CHLORIDE 1,000 ML IV SCH (21:29)
[2020-04-24] MEDS: PIMAVANSERIN 34 MG PO SCH (21:58)
[2020-04-25 04:51] LABS: BASOPHILS # (AUTO) 0.1 K/uL (0-0.2); BASOPHILS % (AUTO) 0.8 % (0.0-3.0); EOSINOPHILS # (AUTO) 0.2 K/ul (0.0-0.7); EOSINOPHILS % (AUTO) 2.3 % (0.0-7.0); HEMATOCRIT 35.7 % (37.0-47.0); HEMOGLOBIN 11.9 g/dl (12.0-16.0); IMMATURE GRANULOCYTE % (AUTO) 0.2 % (0.0-5.0); LYMPHOCYTES # (AUTO) 2.5 K/uL (0.60-3.4); LYMPHOCYTES % (AUTO) 37.7 (10.0-50.0); MEAN CORPUSCULAR HEMOGLOBIN 30.5 pg (27.0-31.0); MEAN CORPUSCULAR HGB CONC 33.3 (31.8-35.4); MEAN CORPUSCULAR VOLUME 91.5 fl (81.0-99.0); MONOCYTES # (AUTO) 0.9 K/uL (0.4-2.0); MONOCYTES % (AUTO) 13.8 (0-10); NEUTROPHILS % (AUTO) 45.2 % (42.2-75.2); PLATELET COUNT 262 10^3/uL (140-440); RDW COEFFICIENT OF VARIATION 12.3 % (11.6-14.8); WHITE BLOOD COUNT 6.53 K/ul (4.6-10.2)
[2020-04-25 05:04] LABS: ALANINE AMINOTRANSFERASE 8.1 U/L (0-35); ALBUMIN 2.95 g/dL (3.5-5.0); ALKALINE PHOSPHATASE 61.1 U/L (53-141); ASPARTATE AMINO TRANSFERASE 19.7 U/L (14-36); BILIRUBIN,TOTAL 0.49 mg/dL (0.2-1.3); BLOOD UREA NITROGEN 13.7 mg/dL (7-17); CALCIUM 8.5 mg/dL (8.4-10.2); CARBON DIOXIDE 27.8 mmol/L (22-30.0); CHLORIDE 106.7 mmol/L (98-107); CREATININE 0.72 mg/dL (0.60-1.30); POTASSIUM 3.74 mmol/L (3.5-5.1); SODIUM 138.2 mmol/L (134.5-145); TOTAL PROTEIN 5.78 g/dL (6.3-8.2)
[2020-04-25 07:59] LABS: CHOLESTEROL 145.3 mg/dL (0-200); HDL CHOLESTEROL 28.1 mg/dL (35-80)
[2020-04-25] MEDS ORDERED: XANAX PO SCH (08:00)
[2020-04-25] MEDS: ASPIRIN EC PO SCH (08:31)
[2020-04-25] MEDS: K-DUR PO SCH ×2 (08:32→16:40)
[2020-04-25] MEDS: MEGACE PO SCH (08:32)
[2020-04-25] MEDS: DITROPAN PO SCH (08:32)
[2020-04-25] MEDS: MULTIVITAMIN TABLET PO SCH (08:32)
[2020-04-25] MEDS: ARICEPT PO SCH (08:33)
[2020-04-25] MEDS: PLAVIX PO SCH (08:33)
[2020-04-25] MEDS: VITAMIN D PO SCH (08:50)
[2020-04-25] MEDS ORDERED: SINEMET 10-100 PO SCH (09:00)
[2020-04-25] MEDS ORDERED: CARBIDOPA LEVODOPA PO SCH (09:00)
[2020-04-25] MEDS ORDERED: CLARITIN PO SCH (09:00)
[2020-04-25] MEDS ORDERED: NORVASC PO SCH (09:00)
[2020-04-25] MEDS: [UNRECOGNIZED DRUG - OTHER] PO SCH (09:09)
[2020-04-25] MEDS: [UNRECOGNIZED DRUG - REMARK] PO SCH (09:09)
[2020-04-25] MEDS: CYANOCOBALAMIN 500 MCG PO SCH (09:09)
[2020-04-25] MEDS: KRILL OM DHA EPA PHOSPHO AST PO SCH (09:09)
[2020-04-25] MEDS: SODIUM CHLORIDE 1,000 ML IV SCH (10:50)
[2020-04-25] MEDS: SINEMET 10-100 PO SCH ×3 (12:23→20:05)
[2020-04-25 14:10] LABS: BILIRUBIN,URINE Negative (NEGATIVE); CLARITY,URINE Slightly (CLEAR); COLOR,URINE Yellow (YELLOW); GLUCOSE, URINE (UA) Negative (NEGATIVE); KETONES,URINE Negative (NEGATIVE); LEUKOCYTE ESTERASE ,URINE Trace (NEGATIVE); NITRITE,URINE Positive (NEGATIVE); PROTEIN,URINE Negative (NEGATIVE); URINE, BLOOD 1+ (NEGATIVE); UROBILINOGEN,URINE 0.2 (0.2)
[2020-04-25 14:18] LABS: BACTERIA,URINE 1+ (NOT PRESENT)
[2020-04-25] MEDS: PAXIL PO SCH (20:07)
[2020-04-25] MEDS: PRAVACHOL PO SCH (20:07)
[2020-04-25] MEDS: PIMAVANSERIN 34 MG PO SCH (20:08)
[2020-04-26] MEDS: SODIUM CHLORIDE 1,000 ML IV SCH (00:33)
[2020-04-26 05:57] LABS: BASOPHILS % (AUTO) 0.5 % (0.0-3.0); EOSINOPHILS # (AUTO) 0.1 K/ul (0.0-0.7); EOSINOPHILS % (AUTO) 1.7 % (0.0-7.0); HEMATOCRIT 32.9 % (37.0-47.0); IMMATURE GRANULOCYTE % (AUTO) 0.5 % (0.0-5.0); LYMPHOCYTES # (AUTO) 2.1 K/uL (0.60-3.4); LYMPHOCYTES % (AUTO) 33.8 (10.0-50.0); MEAN CORPUSCULAR HEMOGLOBIN 30.4 pg (27.0-31.0); MEAN CORPUSCULAR HGB CONC 33.4 (31.8-35.4); MEAN CORPUSCULAR VOLUME 90.9 fl (81.0-99.0); MONOCYTES # (AUTO) 0.7 K/uL (0.4-2.0); MONOCYTES % (AUTO) 11.2 (0-10); NEUTROPHILS # (AUTO) 3.3 K/ul (2.0-6.9); NEUTROPHILS % (AUTO) 52.3 % (42.2-75.2); PLATELET COUNT 253 10^3/uL (140-440); RDW COEFFICIENT OF VARIATION 12.1 % (11.6-14.8); RED BLOOD COUNT 3.62 10^6/ul (4.20-5.40); WHITE BLOOD COUNT 6.33 K/ul (4.6-10.2)
[2020-04-26 06:12] LABS: ALANINE AMINOTRANSFERASE 5.8 U/L (0-35); ALBUMIN 2.71 g/dL (3.5-5.0); ALKALINE PHOSPHATASE 57.7 U/L (53-141); ASPARTATE AMINO TRANSFERASE 17.1 U/L (14-36); BILIRUBIN,TOTAL 0.52 mg/dL (0.2-1.3); BLOOD UREA NITROGEN 9.1 mg/dL (7-17); CALCIUM 7.89 mg/dL (8.4-10.2); CARBON DIOXIDE 23.7 mmol/L (22-30.0); CREATININE 0.57 mg/dL (0.60-1.30); GLUCOSE 85.9 mg/dL (74-106); POTASSIUM 3.32 mmol/L (3.5-5.1); TOTAL PROTEIN 5.52 g/dL (6.3-8.2)
--- NOTE | 2020-04-26 08:39 | PCM.PROG ---
Attending Provider: ATTENDING PROVIDER: Dr. GIOVANNY HARE This patient is seen with Aline Roberto, Nurse Practitioner. DATE OF SERVICE: 04/26/20 SUBJECTIVE: This 89 year old /WHITE F was hospitalized 04/24/20. The patient is resting comfortably. She has no complaints at this time. Has not had any fevers. Urine is positive for gram positive cocci. We will start IV antibiotics. The patient is requiring total care. We will increase Potassium 20mg TID for today. REVIEW OF SYSTEMS: CONSTITUTIONAL: No night sweats. No fatigue, malaise, lethargy. No fever or chills. Weakness. HEENT: Eyes: No visual changes. No eye pain. No eye discharge. ENT: No runny nose. No epistaxis. No sinus pain. No odynophagia. No congestion. RESPIRATORY: No cough, no congestion. No hemoptysis. No shortness of breath. CARDIOVASCULAR: No angina symptoms. No CHF symptoms. No atypical chest pain for CAD. No palpitations. No orthopnea.. GASTROINTESTINAL: No abdominal pain. No nausea or vomiting. No diarrhea or constipation. No hematemesis. No hematochezia. GENITOURINARY: No urgency. No frequency. No dysuria. No hematuria. No obstructive symptoms. No discharge. No pain. No significant abnormal bleeding. MUSCULOSKELETAL: No musculoskeletal pain; no joint swelling. NEUROLOGICAL: Awake, alert, oriented to time, place and person. No headache. No neck pain. No syncope. No seizures. No dizziness. PSYCHIATRIC: Not anxious. No depression. No suicidal thoughts. No homicidal thoughts. SKIN: No rash. No lesions. No wounds. ENDOCRINE: No unexplained weight loss. No weight gain. HEMATOLOGIC/LYMPHATIC: No anemia. No purpura. No petechiae. No prolonged or excessive bleeding. No palpable lymph nodes. PHYSICAL EXAMINATION: GENERAL: The patient is awake, alert and oriented to person only, lying in bed in no distress. Total care. VITAL SIGNS: Temperature 98.8 F, Pulse 73, Respiratory Rate 18, BP 143/69, Pulse Ox 97% HEENT: Head normocephalic, atraumatic. Eyes: Extraocular muscles are intact. Pupils are equal, round and reactive to light and accommodation. Ears: No lesions. Nose appeared normal. Throat: No exudate or erythema. NECK: Supple. No JVD, no carotid bruit. No lymphadenopathy or thyromegaly. LUNGS: Diminished breath sounds. Clear to auscultation. Percussion note normal. Chest symmetrical. HEART: S1, S2, no S3. No murmurs. No cyanosis or clubbing. No ascites. Pulses: Dorsalis pedis and posterior tibial pulses +1 to +2 both sides. ABDOMEN: Soft. Non-tender. Bowel sounds active. No CVA tenderness. No mass felt. EXTREMITIES: No edema. Full range of motion of all extremities, equal. NEUROLOGIC: No focal deficit. Cranial nerves II through XII are grossly intact. No headache, no double vision or headache. SKIN: Not dry. Intact. Turgor-normal. LYMPHATIC: No palpable lymph nodes/no lymphedema. MUSCULOSKELETAL: Normal joints with no swelling. Muscle tone is normal. LAB REVIEW: 04/26/20 05:30 04/26/20 05:30 04/26/20 05:30: Sodium 135.0, Potassium 3.32 L, Chloride 108.0 H, Carbon Dioxide 23.7, Anion Gap 6.62, BUN 9.1, Creatinine 0.57 L, Estimated GFR (MDRD) 100.00, BUN/Creatinine Ratio 15.96, Glucose 85.9, Calcium 7.89 L, Total Bilirubin 0.52, AST 17.1, ALT 5.8, Alkaline Phosphatase 57.7, Total Protein 5.52 L, Albumin 2.71 L, Globulin 2.81, Albumin/Globulin Ratio 0.96 04/26/20 05:30: WBC 6.33, RBC 3.62 L, Hgb 11.0 L, Hct 32.9 L, MCV 90.9, MCH 30.4, MCHC 33.4, RDW Coeff of Max 12.1, Plt Count 253, Immature Gran % (Auto) 0.5, Neut % (Auto) 52.3, Lymph % (Auto) 33.8, [place] % (Auto) 11.2 H, Eos % (Auto) 1.7, Baso % (Auto) 0.5, Neut # (Auto) 3.3, Lymph # (Auto) 2.1, [place] # (Auto) 0.7, Eos # (Auto) 0.1, Baso # (Auto) 0.0, Immature Gran # (Auto) 0.0 04/25/20 13:50: Urine Color Yellow, Urine Clarity Slightly, Urine pH 6.0, Ur Specific [place] 1.025, Urine Protein Negative, Urine Glucose (UA) Negative, Urine Ketones Negative, Urine Blood 1+ H, Urine Nitrite Positive H, Urine Bilirubin Negative, Urine Urobilinogen 0.2, Ur Leukocyte Esterase Trace H, Urine Microscopic RBC 2-5, Urine Microscopic WBC 5-10, Ur Squamous Epith Cells 2-5, Urine Bacteria 1+ 04/25/20 04:40: Triglycerides 70.0, Cholesterol 145.3, LDL Cholesterol, Calc 103, VLDL Cholesterol 14, HDL Cholesterol 28.1 L, Cholesterol/HDL Ratio 5.2 ASSESSMENT: Please see below. 1. Change in mental status 2. Hypotension 3. Weight loss 4. Hypertension 5. Alzheimer's Dementia with Behavior disturbance 6. History of failure to thrive 7. Parkinson's disease, Dr. Reyes 8. DJD spine 9. Anemia 10.Anxiety/Depression 11.Dyslipidemia 12.B12 Deficiency 13.Osteoarthritis PLAN: 1. Potassium 20mg TID today 2. Stop normal saline 3. Rocephin 1gram IV daily 4. Norvasc 5 mg at night Plan and coordination of the patient's care discussed in the presence of Header Operator and nurse. SCRIBED BY: Yaima SUBRAMANIAN scribed while in presence of service performed by Dr. Hare/Aline Roberto APRN on 04/26/20 ([id number])
[2020-04-26] MEDS: ROCEPHIN 1 GM/50 ML D5W 1 GM/50 ML BAG IV SCH (09:04)
[2020-04-26] MEDS: MULTIVITAMIN TABLET PO SCH (09:08)
[2020-04-26] MEDS: ASPIRIN EC PO SCH (09:08)
[2020-04-26] MEDS: ARICEPT PO SCH (09:09)
[2020-04-26] MEDS: MEGACE PO SCH (09:09)
[2020-04-26] MEDS: [UNRECOGNIZED DRUG - REMARK] PO SCH (09:09)
[2020-04-26] MEDS: DITROPAN PO SCH (09:09)
[2020-04-26] MEDS: VITAMIN D PO SCH (09:09)
[2020-04-26] MEDS: PLAVIX PO SCH (09:09)
[2020-04-26] MEDS: K-DUR PO SCH ×3 (09:09→16:17)
[2020-04-26] MEDS: CYANOCOBALAMIN 500 MCG PO SCH (09:10)
[2020-04-26] MEDS: SINEMET 10-100 PO SCH ×3 (09:10→21:50)
[2020-04-26] MEDS: KRILL OM DHA EPA PHOSPHO AST PO SCH (09:10)
[2020-04-26] MEDS: [UNRECOGNIZED DRUG - OTHER] PO SCH (09:10)
--- NOTE | 2020-04-26 09:42 | PN ---
DATE OF SERVICE: 04/25/2020 SUBJECTIVE: 89 year old white female hospitalized with change in the mental status, Parkinson's disease also hypotension with weight loss. She has been taken off Amlodipine and Metoprolol. REVIEW OF SYSTEMS: CONSTITUTIONAL: No night sweats. No fatigue, malaise, lethargy. No fever or chills. Feeling somewhat better. More alert. Feeling herself. HEENT: Eyes: No visual changes. No eye pain. No eye discharge. ENT: No runny nose. No epistaxis. No sinus pain. No sore throat. No odynophagia. No congestion. RESPIRATORY: No cough, no congestion. No hemoptysis. No shortness of breath. CARDIOVASCULAR: No angina symptoms. No CHF symptoms. No atypical chest pain for CAD. No palpitations. No PND. No orthopnea. GASTROINTESTINAL: No abdominal pain. No nausea or vomiting. No diarrhea or constipation. No hematemesis. No hematochezia. GENITOURINARY: No urgency. No frequency. No dysuria. No hematuria. No obstructive symptoms. No discharge. No pain. No significant abnormal bleeding. MUSCULOSKELETAL: No musculoskeletal pain; no joint swelling. NEUROLOGICAL: No headache. No neck pain. No syncope. No seizures. No dizziness.Tremors noted. PSYCHIATRIC: Not anxious. No depression. No suicidal thoughts. No homicidal thoughts. SKIN: No rash. No lesions. No wounds. ENDOCRINE: No unexplained weight loss. No weight gain. HEMATOLOGIC/LYMPHATIC: No anemia. No purpura. No petechiae. No prolonged or excessive bleeding. No palpable lymph nodes. PHYSICAL EXAMINATION: GENERAL: The patient is , lying/sitting in bed in no distress. VITAL SIGNS:Temperature 98.4, pulse 67, respiratory rate 18, blood pressure 140/60 and pulse ox 96%. HEENT: Head normocephalic, atraumatic. Eyes: Extraocular muscles are intact. Pupils are equal, round and reactive to light and accommodation. Ears: No lesions. Nose appeared normal. Throat: No exudate or erythema. NECK: Supple. No JVD, no carotid bruit. No lymphadenopathy or thyromegaly. LUNGS: Decreased breath sounds but clear to auscultation. Percussion note normal. Chest symmetrical. HEART: S1, S2, no S3. No murmurs. No cyanosis or clubbing. No ascites. Pulses: Dorsalis pedis and posterior tibial pulses +1 to +2 bilaterally. ABDOMEN: Soft. Nontender. Bowel sounds active. No CVA tenderness. No mass felt. EXTREMITIES: No edema. Full range of motion of all extremities, equal. NEUROLOGIC: No focal deficit. Cranial nerves II through XII are grossly intact. No headache, no double vision or headache. SKIN: Not dry. Intact. Turgor - normal. LYMPHATIC: No palpable lymph nodes/no lymphedema. MUSCULOSKELETAL: Normal joints with no swelling. Muscle tone is normal. LABS: Hgb 11.9, hct 35, WBC 6,500 normal differential, creatinine 0.7, BUN 13, potassium 3.7 ASSESSMENT: 1. Mental status has improved 2. Hydration status has improved 3. Hypotension, resolved 4. Cardiovascular status seems to be stable PLAN: 1. The patient probably has been over medicated. 2. Try to make her an appointment with Dr. Reyes on followup. 3. Because of COVID she hasn't seen anybody. She was in lock down for 5-6 months. CONDITION: Improving TIME SPENT: More than 30 minutes. Plan and coordination of the patient's care discussed in the presence of nurse. JASON
[2020-04-26] MEDS: NORVASC PO SCH (21:05)
[2020-04-26] MEDS: PAXIL PO SCH (21:05)
[2020-04-26] MEDS: PRAVACHOL PO SCH (21:05)
[2020-04-26] MEDS: PIMAVANSERIN 34 MG PO SCH (21:06)
[2020-04-27 05:42] LABS: BASOPHILS % (AUTO) 0.5 % (0.0-3.0); EOSINOPHILS # (AUTO) 0.2 K/ul (0.0-0.7); EOSINOPHILS % (AUTO) 2.8 % (0.0-7.0); HEMATOCRIT 36.6 % (37.0-47.0); IMMATURE GRANULOCYTE % (AUTO) 0.2 % (0.0-5.0); LYMPHOCYTES # (AUTO) 1.9 K/uL (0.60-3.4); MEAN CORPUSCULAR HEMOGLOBIN 29.8 pg (27.0-31.0); MEAN CORPUSCULAR HGB CONC 32.8 (31.8-35.4); MEAN CORPUSCULAR VOLUME 90.8 fl (81.0-99.0); MONOCYTES # (AUTO) 0.7 K/uL (0.4-2.0); MONOCYTES % (AUTO) 12.6 (0-10); NEUTROPHILS # (AUTO) 2.9 K/ul (2.0-6.9); NEUTROPHILS % (AUTO) 50.9 % (42.2-75.2); PLATELET COUNT 283 10^3/uL (140-440); RED BLOOD COUNT 4.03 10^6/ul (4.20-5.40); WHITE BLOOD COUNT 5.78 K/ul (4.6-10.2)
[2020-04-27 05:54] LABS: ALANINE AMINOTRANSFERASE 4.7 U/L (0-35); ALBUMIN 3.1 g/dL (3.5-5.0); ALKALINE PHOSPHATASE 62.3 U/L (53-141); ASPARTATE AMINO TRANSFERASE 22.8 U/L (14-36); BILIRUBIN,TOTAL 0.6 mg/dL (0.2-1.3); BLOOD UREA NITROGEN 8.3 mg/dL (7-17); CALCIUM 8.5 mg/dL (8.4-10.2); CARBON DIOXIDE 26.7 mmol/L (22-30.0); CHLORIDE 105.6 mmol/L (98-107); CREATININE 0.62 mg/dL (0.60-1.30); GLUCOSE 83.4 mg/dL (74-106); POTASSIUM 3.45 mmol/L (3.5-5.1); SODIUM 136.2 mmol/L (134.5-145); TOTAL PROTEIN 6.07 g/dL (6.3-8.2)
[2020-04-27] MEDS: ASPIRIN EC PO SCH (08:49)
[2020-04-27] MEDS: SINEMET 10-100 PO SCH ×3 (08:49→20:45)
[2020-04-27] MEDS: DITROPAN PO SCH (08:50)
[2020-04-27] MEDS: K-DUR PO SCH ×3 (08:50→17:35)
[2020-04-27] MEDS: MULTIVITAMIN TABLET PO SCH (08:50)
[2020-04-27] MEDS: ARICEPT PO SCH (08:51)
[2020-04-27] MEDS: MEGACE PO SCH (08:51)
[2020-04-27] MEDS: PLAVIX PO SCH (08:51)
[2020-04-27] MEDS: VITAMIN D PO SCH (08:53)
[2020-04-27] MEDS: ROCEPHIN 1 GM/50 ML D5W 1 GM/50 ML BAG IV SCH (08:54)
--- NOTE | 2020-04-27 08:59 | PCM.PROG ---
Attending Provider: ATTENDING PROVIDER: Dr. GIOVANNY KAPOOR DATE OF SERVICE: 04/27/20 SUBJECTIVE: This 89 year old /WHITE F was hospitalized 04/24/20 with change in the mental status and hypotension. She is eating by herself at times. We will discontinue IV fluids. We will call Dr. Reyes and get an appointment for Parkinson's disease. REVIEW OF SYSTEMS: CONSTITUTIONAL: No night sweats. No fatigue, malaise, lethargy. No fever or chills. HEENT: Eyes: No visual changes. No eye pain. No eye discharge. ENT: No runny nose. No epistaxis. No sinus pain. No odynophagia. No congestion. RESPIRATORY: No cough, no congestion. No hemoptysis. No shortness of breath. CARDIOVASCULAR: No angina symptoms. No CHF symptoms. No atypical chest pain for CAD. No palpitations. No orthopnea.. GASTROINTESTINAL: No abdominal pain. No nausea or vomiting. No diarrhea or constipation. No hematemesis. No hematochezia. GENITOURINARY: No urgency. No frequency. No dysuria. No hematuria. No o bstructive symptoms. No discharge. No pain. No significant abnormal bleeding. MUSCULOSKELETAL: No musculoskeletal pain; no joint swelling. NEUROLOGICAL: Awake, alert, oriented to time, place and person. No headache. No neck pain. No syncope. No seizures. No dizziness. PSYCHIATRIC: Not anxious. No depression. No suicidal thoughts. No homicidal thoughts. SKIN: No rash. No lesions. No wounds. ENDOCRINE: No unexplained weight loss. No weight gain. HEMATOLOGIC/LYMPHATIC: No anemia. No purpura. No petechiae. No prolonged or excessive bleeding. No palpable lymph nodes. PHYSICAL EXAMINATION: GENERAL: The patient is awake, alert and oriented, lying in bed in no distress. VITAL SIGNS: Temperature 98.8 F, Pulse 68, Respiratory Rate 16, BP 159/74, Pulse Ox 94% HEENT: Head normocephalic, atraumatic. Eyes: Extraocular muscles are intact. Pupils are equal, round and reactive to light and accommodation. Ears: No lesions. Nose appeared normal. Throat: No exudate or erythema. NECK: Supple. No JVD, no carotid bruit. No lymphadenopathy or thyromegaly. LUNGS: Decreased breath sounds. Clear to auscultation. Percussion note normal. Chest symmetrical. HEART: S1, S2, no S3. No murmurs. No cyanosis or clubbing. No ascites. Pulses: Dorsalis pedis and posterior tibial pulses +1 to +2 both sides. ABDOMEN: Soft. Non-tender. Bowel sounds active. No CVA tenderness. No mass felt. EXTREMITIES: No edema. Full range of motion of all extremities, equal. NEUROLOGIC: No focal deficit. Cranial nerves II through XII are grossly intact. No headache, no double vision or headache. SKIN: Warm and dry. Intact. Turgor-normal. LYMPHATIC: No palpable lymph nodes/no lymphedema. MUSCULOSKELETAL: Normal joints with no swelling. Muscle tone is normal. LAB REVIEW: 04/27/20 05:10 04/27/20 05:10 04/27/20 05:10: Sodium 136.2, Potassium 3.45 L, Chloride 105.6, Carbon Dioxide 26.7, Anion Gap 7.35, BUN 8.3, Creatinine 0.62, Estimated GFR (MDRD) 91.00, BUN/Creatinine Ratio 13.38, Glucose 83.4, Calcium 8.50, Total Bilirubin 0.60, AST 22.8, ALT 4.7, Alkaline Phosphatase 62.3, Total Protein 6.07 L, Albumin 3.10 L, Globulin 2.97, Albumin/Globulin Ratio 1.04 04/27/20 05:10: WBC 5.78, RBC 4.03 L, Hgb 12.0, Hct 36.6 L, MCV 90.8, MCH 29.8, MCHC 32.8, RDW Coeff of Max 12.0, Plt Count 283, Immature Gran % (Auto) 0.2, Neut % (Auto) 50.9, Lymph % (Auto) 33.0, [place] % (Auto) 12.6 H, Eos % (Auto) 2.8, Baso % (Auto) 0.5, Neut # (Auto) 2.9, Lymph # (Auto) 1.9, [place] # (Auto) 0.7, Eos # (Auto) 0.2, Baso # (Auto) 0.0, Immature Gran # (Auto) 0.0 ASSESSMENT: Please see below. 1. Mental status, improved some 2. Hypotension, resolved 3. Hydration status improved 4. Hypokalemia, resolved PLAN: 1. Discontinue IV fluids 2. Dr. Reyes to continue to see her 3. Cardiovascular status is stable. 4. Echo pending 5. Continue IV antibiotics for UTI for gram positive cocci. Plan and coordination of the patient's care discussed in the presence of E Merchant and nurse. SCRIBED BY: Lucy SUBRAMANIANist scribed while in presence of service performed by Dr. GIOVANNY KAPOOR on 04/27/20 ([id number])
[2020-04-27] MEDS: CYANOCOBALAMIN 500 MCG PO SCH (09:00)
[2020-04-27] MEDS: KRILL OM DHA EPA PHOSPHO AST PO SCH (09:00)
[2020-04-27] MEDS: [UNRECOGNIZED DRUG - OTHER] PO SCH (09:00)
[2020-04-27] MEDS: [UNRECOGNIZED DRUG - REMARK] PO SCH (09:00)
[2020-04-27] MEDS: PIMAVANSERIN 34 MG PO SCH (20:44)
[2020-04-27] MEDS: PAXIL PO SCH (20:45)
[2020-04-27] MEDS: NORVASC PO SCH (20:45)
[2020-04-27] MEDS: PRAVACHOL PO SCH (20:45)
[2020-04-28 04:33] LABS: BASOPHILS # (AUTO) 0.1 K/uL (0-0.2); BASOPHILS % (AUTO) 0.9 % (0.0-3.0); EOSINOPHILS # (AUTO) 0.2 K/ul (0.0-0.7); EOSINOPHILS % (AUTO) 3.2 % (0.0-7.0); HEMATOCRIT 36.2 % (37.0-47.0); IMMATURE GRANULOCYTE % (AUTO) 0.2 % (0.0-5.0); LYMPHOCYTES # (AUTO) 1.6 K/uL (0.60-3.4); LYMPHOCYTES % (AUTO) 30.1 (10.0-50.0); MEAN CORPUSCULAR HEMOGLOBIN 30.1 pg (27.0-31.0); MEAN CORPUSCULAR HGB CONC 33.1 (31.8-35.4); MEAN CORPUSCULAR VOLUME 90.7 fl (81.0-99.0); MONOCYTES # (AUTO) 0.7 K/uL (0.4-2.0); MONOCYTES % (AUTO) 13.3 (0-10); NEUTROPHILS # (AUTO) 2.8 K/ul (2.0-6.9); NEUTROPHILS % (AUTO) 52.3 % (42.2-75.2); PLATELET COUNT 273 10^3/uL (140-440); RED BLOOD COUNT 3.99 10^6/ul (4.20-5.40); WHITE BLOOD COUNT 5.35 K/ul (4.6-10.2)
[2020-04-28 04:46] LABS: ALBUMIN 3.07 g/dL (3.5-5.0); ALKALINE PHOSPHATASE 64.4 U/L (53-141); ASPARTATE AMINO TRANSFERASE 20.7 U/L (14-36); BILIRUBIN,TOTAL 0.58 mg/dL (0.2-1.3); BLOOD UREA NITROGEN 9.9 mg/dL (7-17); CALCIUM 8.54 mg/dL (8.4-10.2); CARBON DIOXIDE 25.6 mmol/L (22-30.0); CHLORIDE 105.5 mmol/L (98-107); CREATININE 0.64 mg/dL (0.60-1.30); GLUCOSE 86.2 mg/dL (74-106); POTASSIUM 3.59 mmol/L (3.5-5.1); SODIUM 136.4 mmol/L (134.5-145); TOTAL PROTEIN 5.97 g/dL (6.3-8.2)
[2020-04-28] MEDS: ROCEPHIN 1 GM/50 ML D5W 1 GM/50 ML BAG IV SCH (09:39)
[2020-04-28] MEDS: MEGACE PO SCH (09:39)
[2020-04-28] MEDS: DITROPAN PO SCH (09:39)
[2020-04-28] MEDS: K-DUR PO SCH ×3 (09:39→16:33)
[2020-04-28] MEDS: MULTIVITAMIN TABLET PO SCH (09:40)
[2020-04-28] MEDS: VITAMIN D PO SCH (09:40)
[2020-04-28] MEDS: PLAVIX PO SCH (09:40)
[2020-04-28] MEDS: ASPIRIN EC PO SCH (09:40)
[2020-04-28] MEDS: ARICEPT PO SCH (09:40)
[2020-04-28] MEDS: [UNRECOGNIZED DRUG - REMARK] PO SCH (09:52)
[2020-04-28] MEDS: SINEMET 10-100 PO SCH ×3 (09:55→20:25)
[2020-04-28] MEDS: CYANOCOBALAMIN 500 MCG PO SCH (09:56)
[2020-04-28] MEDS: [UNRECOGNIZED DRUG - OTHER] PO SCH (09:57)
[2020-04-28] MEDS: KRILL OM DHA EPA PHOSPHO AST PO SCH (09:57)
[2020-04-28] MEDS: AMPICILLIN TRIHYDRATE PO SCH ×2 (15:56→21:01)
[2020-04-28] MEDS: COREG PO SCH (16:33)
[2020-04-28] MEDS: PAXIL PO SCH (20:25)
[2020-04-28] MEDS: NORVASC PO SCH (20:25)
[2020-04-28] MEDS: PRAVACHOL PO SCH (20:25)
[2020-04-28] MEDS: PIMAVANSERIN 34 MG PO SCH (20:26)
[2020-04-29] MEDS: AMPICILLIN TRIHYDRATE PO SCH ×4 (04:45→21:03)
[2020-04-29 05:16] LABS: BASOPHILS # (AUTO) 0.1 K/uL (0-0.2); BASOPHILS % (AUTO) 0.9 % (0.0-3.0); EOSINOPHILS # (AUTO) 0.2 K/ul (0.0-0.7); HEMATOCRIT 37.5 % (37.0-47.0); HEMOGLOBIN 12.4 g/dl (12.0-16.0); IMMATURE GRANULOCYTE % (AUTO) 0.4 % (0.0-5.0); LYMPHOCYTES # (AUTO) 2.1 K/uL (0.60-3.4); LYMPHOCYTES % (AUTO) 40.5 (10.0-50.0); MEAN CORPUSCULAR HGB CONC 33.1 (31.8-35.4); MEAN CORPUSCULAR VOLUME 90.8 fl (81.0-99.0); MONOCYTES # (AUTO) 0.6 K/uL (0.4-2.0); MONOCYTES % (AUTO) 11.2 (0-10); NEUTROPHILS # (AUTO) 2.3 K/ul (2.0-6.9); PLATELET COUNT 290 10^3/uL (140-440); RDW COEFFICIENT OF VARIATION 12.2 % (11.6-14.8); RED BLOOD COUNT 4.13 10^6/ul (4.20-5.40); WHITE BLOOD COUNT 5.28 K/ul (4.6-10.2)
[2020-04-29 05:28] LABS: ALANINE AMINOTRANSFERASE 6.8 U/L (0-35); ALBUMIN 3.32 g/dL (3.5-5.0); ASPARTATE AMINO TRANSFERASE 24.3 U/L (14-36); BILIRUBIN,TOTAL 0.55 mg/dL (0.2-1.3); BLOOD UREA NITROGEN 11.2 mg/dL (7-17); CALCIUM 8.77 mg/dL (8.4-10.2); CARBON DIOXIDE 26.4 mmol/L (22-30.0); CHLORIDE 104.2 mmol/L (98-107); CREATININE 0.68 mg/dL (0.60-1.30); GLUCOSE 83.6 mg/dL (74-106); POTASSIUM 3.83 mmol/L (3.5-5.1); TOTAL PROTEIN 6.37 g/dL (6.3-8.2)
[2020-04-29] MEDS ORDERED: ROCEPHIN 1 GM/50 ML D5W 1 GM/50 ML BAG IV SCH (09:00)
[2020-04-29] MEDS: [UNRECOGNIZED DRUG - REMARK] PO SCH (09:18)
[2020-04-29] MEDS: SINEMET 10-100 PO SCH ×3 (09:19→21:02)
[2020-04-29] MEDS: VITAMIN D PO SCH (09:19)
[2020-04-29] MEDS: ASPIRIN EC PO SCH (09:19)
[2020-04-29] MEDS: ARICEPT PO SCH (09:20)
[2020-04-29] MEDS: PLAVIX PO SCH (09:20)
[2020-04-29] MEDS: MULTIVITAMIN TABLET PO SCH (09:20)
[2020-04-29] MEDS: MEGACE PO SCH (09:20)
[2020-04-29] MEDS: COREG PO SCH ×2 (09:20→17:22)
[2020-04-29] MEDS: DITROPAN PO SCH (09:20)
[2020-04-29] MEDS: K-DUR PO SCH ×5 (09:20→17:22)
[2020-04-29] MEDS: CYANOCOBALAMIN 500 MCG PO SCH (09:32)
[2020-04-29] MEDS: [UNRECOGNIZED DRUG - OTHER] PO SCH (09:33)
[2020-04-29] MEDS: KRILL OM DHA EPA PHOSPHO AST PO SCH (09:33)
[2020-04-29] MEDS ORDERED: PIMAVANSERIN 34 MG PO SCH (18:00)
[2020-04-29] MEDS: CATAPRES PO SCH (21:02)
[2020-04-29] MEDS: NORVASC PO SCH (21:02)
[2020-04-29] MEDS: PAXIL PO SCH (21:03)
[2020-04-29] MEDS: PRAVACHOL PO SCH (21:03)
[2020-04-30 04:55] LABS: BASOPHILS % (AUTO) 0.6 % (0.0-3.0); EOSINOPHILS # (AUTO) 0.2 K/ul (0.0-0.7); EOSINOPHILS % (AUTO) 3.9 % (0.0-7.0); HEMATOCRIT 34.8 % (37.0-47.0); HEMOGLOBIN 11.5 g/dl (12.0-16.0); IMMATURE GRANULOCYTE % (AUTO) 0.4 % (0.0-5.0); LYMPHOCYTES # (AUTO) 2.1 K/uL (0.60-3.4); LYMPHOCYTES % (AUTO) 40.9 (10.0-50.0); MEAN CORPUSCULAR VOLUME 90.9 fl (81.0-99.0); MONOCYTES # (AUTO) 0.7 K/uL (0.4-2.0); MONOCYTES % (AUTO) 13.8 (0-10); NEUTROPHILS # (AUTO) 2.1 K/ul (2.0-6.9); NEUTROPHILS % (AUTO) 40.4 % (42.2-75.2); PLATELET COUNT 272 10^3/uL (140-440); RDW COEFFICIENT OF VARIATION 12.2 % (11.6-14.8); RED BLOOD COUNT 3.83 10^6/ul (4.20-5.40); WHITE BLOOD COUNT 5.16 K/ul (4.6-10.2)
[2020-04-30 05:11] LABS: ALANINE AMINOTRANSFERASE 5.6 U/L (0-35); ALBUMIN 3.06 g/dL (3.5-5.0); ALKALINE PHOSPHATASE 61.6 U/L (53-141); ASPARTATE AMINO TRANSFERASE 25.4 U/L (14-36); BILIRUBIN,TOTAL 0.47 mg/dL (0.2-1.3); BLOOD UREA NITROGEN 12.2 mg/dL (7-17); CALCIUM 8.57 mg/dL (8.4-10.2); CARBON DIOXIDE 26.5 mmol/L (22-30.0); CHLORIDE 106.7 mmol/L (98-107); CREATININE 0.67 mg/dL (0.60-1.30); GLUCOSE 89.8 mg/dL (74-106); POTASSIUM 4.1 mmol/L (3.5-5.1); SODIUM 136.4 mmol/L (134.5-145); TOTAL PROTEIN 6.06 g/dL (6.3-8.2)
[2020-04-30 05:44] VITALS: TEMP 98.1
[2020-04-30] MEDS: AMPICILLIN TRIHYDRATE PO SCH ×2 (05:44→11:14)
--- NOTE | 2020-04-30 08:43 | PCM.PROG ---
Attending Provider: ATTENDING PROVIDER: Dr. GIOVANNY KAPOOR This patient is seen with Rose Gaitan, Nurse Practitioner. DATE OF SERVICE: 04/30/20 SUBJECTIVE: This 89 year old /WHITE F was hospitalized 04/24/20. The patient is resting comfortably. She is eating better. Blood pressure is stable. The patient is pleasantly confused as usual. REVIEW OF SYSTEMS: CONSTITUTIONAL: No night sweats. No fatigue, malaise, lethargy. No fever or chills. Weakness. HEENT: Eyes: No visual changes. No eye pain. No eye discharge. ENT: No runny nose. No epistaxis. No sinus pain. No odynophagia. No congestion. RESPIRATORY: No cough, no congestion. No hemoptysis. No shortness of breath. CARDIOVASCULAR: No angina symptoms. No CHF symptoms. No atypical chest pain for CAD. No palpitations. No orthopnea.. GASTROINTESTINAL: No abdominal pain. No nausea or vomiting. No diarrhea or con stipation. No hematemesis. No hematochezia. GENITOURINARY: No urgency. No frequency. No dysuria. No hematuria. No obstructive symptoms. No discharge. No pain. No significant abnormal bleeding. MUSCULOSKELETAL: No musculoskeletal pain; no joint swelling. NEUROLOGICAL: Awake, alert, confused. No headache. No neck pain. No syncope. No seizures. No dizziness. PSYCHIATRIC: Not anxious. No depression. No suicidal thoughts. No homicidal thoughts. SKIN: No rash. No lesions. No wounds. ENDOCRINE: No unexplained weight loss. No weight gain. HEMATOLOGIC/LYMPHATIC: No anemia. No purpura. No petechiae. No prolonged or excessive bleeding. No palpable lymph nodes. PHYSICAL EXAMINATION: GENERAL: The patient is awake, alert and oriented to person only, lying in bed in no distress. VITAL SIGNS: Temperature 98.1 F, Pulse 68, Respiratory Rate 16, BP 155/75, Pulse Ox 97% HEENT: Head normocephalic, atraumatic. Eyes: Extraocular muscles are intact. Pupils are equal, round and reactive to light and accommodation. Ears: No lesions. Nose appeared normal. Throat: No exudate or erythema. NECK: Supple. No JVD, no carotid bruit. No lymphadenopathy or thyromegaly. LUNGS: Diminished breath sounds. Clear to auscultation. Percussion note normal. Chest symmetrical. HEART: S1, S2, no S3. No murmurs. No cyanosis or clubbing. No ascites. Pulses: Dorsalis pedis and posterior tibial pulses +1 to +2 both sides. ABDOMEN: Soft. Non-tender. Bowel sounds active. No CVA tenderness. No mass felt. EXTREMITIES: No edema. Full range of motion of all extremities, equal. NEUROLOGIC: No focal deficit. Cranial nerves II through XII are grossly intact. No headache, no double vision or headache. SKIN: Not dry. Intact. Turgor-normal. LYMPHATIC: No palpable lymph nodes/no lymphedema. MUSCULOSKELETAL: Normal joints with no swelling. Muscle tone is normal. LAB REVIEW: 04/30/20 04:48 04/30/20 04:48 04/30/20 04:48: Sodium 136.4, Potassium 4.10, Chloride 106.7, Carbon Dioxide 26.5, Anion Gap 7.30, BUN 12.2, Creatinine 0.67, Estimated GFR (MDRD) 83.00, BU N/Creatinine Ratio 18.20, Glucose 89.8, Calcium 8.57, Total Bilirubin 0.47, AST 25.4, ALT 5.6, Alkaline Phosphatase 61.6, Total Protein 6.06 L, Albumin 3.06 L, Globulin 3.00, Albumin/Globulin Ratio 1.02 04/30/20 04:48: WBC 5.16, RBC 3.83 L, Hgb 11.5 L, Hct 34.8 L, MCV 90.9, MCH 30.0, MCHC 33.0, RDW Coeff of Max 12.2, Plt Count 272, Immature Gran % (Auto) 0.4, Neut % (Auto) 40.4 L, Lymph % (Auto) 40.9, [place] % (Auto) 13.8 H, Eos % (Auto) 3.9, Baso % (Auto) 0.6, Neut # (Auto) 2.1, Lymph # (Auto) 2.1, [place] # (Auto) 0.7, Eos # (Auto) 0.2, Baso # (Auto) 0.0, Immature Gran # (Auto) 0.0 ASSESSMENT: Please see below. 1. Hypotension resolved 2. UTI, improved 3. Generalized weakness 4. Dementia with behavior disturbances 5. Parkinson's disease 6. Chronic anemia PLAN: 1. [facility] 2. Will need PT/OT evaluation at facility 3. Ampicillin 500mg TID for the next three days for UTI. Plan and coordination of the patient's care discussed in the presence of Lead Java Developer Architect and nurse. SCRIBED BY: Yaima SUBRAMANIAN scribed while in presence of service performed by Dr. Kapoor/Rose Gaitan APRN on 04/30/20 ([id number])
--- NOTE | 2020-04-30 10:43 | ECHO2D ---
Date of Exam: 04/29/2020 Ordering Physician: DR. GIOVANNY KAPOOR Room #: 115 Reason for Echo: VASCULAR CONGETSTION,SOA M-Mode Normal Adult Results LV Dimensions Normal Adult Results AoV Opening excursions >1.6 >1.6 LVEDD-base- 3.5-5.8 4.2 Ao root dimensions 2.0-3.7 3.5 LVESD-base- 3.1-4.6 L. Atrium dimensions 1.9-3.8 3.6 Post. Wall thickness 0.8-1.1 1.2 IV septum (thickness) 0.7-1.2 1.3 Post. Wall excursion 0.72-1.3 NORMAL Septal motion NORMAL Systolic motion R. Ventricular cavity 1.5-2.0 NORMAL LVEF 60% 62% Paradoxical septal wall motion NORMAL 2-D : 2-D M Mode Echocardiogram was performed using apical four chamber and left parasternal long and short axis views. Mitral, tricuspid and aortic valves appear to be normal. Contractility of the left ventricle seems to be normal, so is the cavity size. Left atrial cavity size and aortic root appear to be normal. There is no pericardial effusion. There is no thrombus noted in the left ventricle or left atrial cavity. No mitral valve prolapse noted. M-MODE: MV: NORMAL AV: NORMAL TV: NORMAL PV: CHAMBER SIZE: NORMAL WALL MOTION: NORMAL PERICARDIUM: NORMAL INTERPRETATION: 1. LEFT VENTRICULAR HYPERTROPHY 2. NORMAL LEFT VENTRICULAR CONTRACTILITY 3. NORMAL VALVES MTDD
[2020-04-30] MEDS: CATAPRES PO SCH (11:07)
[2020-04-30] MEDS: MULTIVITAMIN TABLET PO SCH (11:07)
[2020-04-30] MEDS: ASPIRIN EC PO SCH (11:07)
[2020-04-30] MEDS: DITROPAN PO SCH (11:08)
[2020-04-30] MEDS: ARICEPT PO SCH (11:08)
[2020-04-30] MEDS: PLAVIX PO SCH (11:09)
[2020-04-30] MEDS: MEGACE PO SCH (11:09)
[2020-04-30] MEDS: COREG PO SCH (11:09)
[2020-04-30] MEDS: K-DUR PO SCH ×2 (11:11→13:18)
[2020-04-30] MEDS: [UNRECOGNIZED DRUG - REMARK] PO SCH (11:11)
[2020-04-30] MEDS: KRILL OM DHA EPA PHOSPHO AST PO SCH (11:12)
[2020-04-30] MEDS: [UNRECOGNIZED DRUG - OTHER] PO SCH (11:12)
[2020-04-30] MEDS: CYANOCOBALAMIN 500 MCG PO SCH (11:12)
[2020-04-30] MEDS: VITAMIN D PO SCH (11:13)
[2020-04-30] MEDS: SINEMET 10-100 PO SCH ×2 (11:14→15:23)
--- NOTE | 2020-04-30 12:24 | CM.DICTOOL ---
ADMISSION: 04/24/20 16:08 DISCHARGE: APRIL 30, 2020 DATE OF SERVICE: 04/30/20 FINAL DIAGNOSIS CHANGE IN MENTAL STATUS HYPOTENSION- RESOLVED WEIGHT LOSS UTI- IMPROVED GENERALIZED WEAKNESS DEMENTIA WITH BEHAVIORAL DISTURBANCES PARKINSON'S DISEASE CHRONIC ANEMIA HX: HYPERTENSION CVA, 2011 ALZHEIMER'S DEMENTIA WITH BEHAVIOR DISTURBANCE HYPOTHYROIDISM PARKINSON'S (DR. VALDES) ANEMIA B12 DEFICIENCY DJD SPINE ANXIETY DEPRESSION DYSLIPIDEMIA SURGICAL HX: APPENDECTOMY CATARACT EXTRACTION LAST VITALS Temp Pulse Resp BP Pulse Ox 98.1 F 86 16 155/75 H 97 04/30/20 05:42 04/30/20 08:00 04/30/20 08:00 04/30/20 05:42 04/30/20 05:42 TAKE THESE MEDICATIONS AT HOME Acetaminophen (Acetaminophen 325 Mg Tablet) 500 MG mg PO Q4H PRN PRN Reason: Headache Alprazolam (Alprazolam 0.25 Mg Tablet) 0.25 mg PO 0800,1200,1700 PRN PRN Reason: Anxiety Amlodipine Besylate (Amlodipine Besylate 5 Mg Tablet) 5 mg PO BEDTIME [facility] -- (CHANGED) Last Admin: 04/29/20 21:02 Dose: 5 mg Documented by: Ampicillin (Ampicillin Trihydrate 500 Mg Capsule) 500 mg PO TID [facility] X 3 MORE DAYS -- ( NEW) Stop: 05/03/20 23:59 Last Admin: 04/30/20 05:44 Dose: 500 mg Documented by: Carbidopa/Levodopa (Carbidopa/Levodopa 10/100 Tablet) 1 tab PO TID [facility] Last Admin: 04/29/20 21:02 Dose: 1 tab Documented by: Carvedilol (Carvedilol 6.25 Mg Tablet) 6.25 mg PO BIDWM [facility] -- (NEW) Last Admin: 04/29/20 17:22 Dose: 6.25 mg Documented by: Cholecalciferol (Cholecalciferol (Vitamin D3) 1,000 Unit Tablet) 1,000 unit PO DAILY [facility] Last Admin: 04/29/20 09:19 Dose: 1,000 unit Documented by: Clonidine (Clonidine Hcl 0.1 Mg Tablet) 0.1 mg PO BID [facility] -- (NEW) Last Admin: 04/29/20 21:02 Dose: 0.1 mg Documented by: Clopidogrel Bisulfate (Clopidogrel Bisulfate 75 Mg Tablet) 75 mg PO DAILY [facility] Last Admin: 04/29/20 09:20 Dose: 75 mg Documented by: Donepezil HCl (Donepezil Hcl 10 Mg Tablet) 10 mg PO DAILY [facility] Last Admin: 04/29/20 09:20 Dose: 10 mg Documented by: Megestrol Acetate (Megestrol Acetate 40 Mg Tablet) 40 mg PO DAILY [facility] Last Admin: 04/29/20 09:20 Dose: 40 mg Documented by: Multivitamins (Multivitamin 1 Tab) 1 tab PO DAILY [facility] -- (NEW) Last Admin: 04/29/20 09:20 Dose: 1 tab Documented by: Non-Formulary Medication (Antiox.Mv No.[id number] [I-Caps]) 1 cap PO DAILY [facility] Last Admin: 04/29/20 09:18 Dose: Not Given Documented by: Non-Formulary Medication (Cyanocobalamin (Vitamin B-12) [Vitamin B-12]) 1 cap PO DAILY [facility] Last Admin: 04/29/20 09:32 Dose: Not Given Documented by: Non-Formulary Medication ([id number] [Megared Revelo-3 Krill Oil]) 350 mg PO DAILY [facility] Last Admin: 04/29/20 09:33 Dose: Not Given Documented by: Non-Formulary Medication (Pimavanserin [Nuplazid]) 34 mg PO 1800 [facility] Last Admin: 04/29/20 17:22 Dose: 34 mg Documented by: Oxybutynin Chloride (Oxybutynin Chloride 5 Mg Tablet) 15 mg PO DAILYWM [facility] Last Admin: 04/29/20 09:20 Dose: 15 mg Documented by: Paroxetine HCl (Paroxetine Hcl 20 Mg Tablet) 20 mg PO BEDTIME [facility] Last Admin: 04/29/20 21:03 Dose: 20 mg Documented by: Potassium Chloride (Potassium Chloride 20 Meq Tab) 20 meq PO BIDWM [facility] Last Admin: 04/29/20 17:22 Dose: 20 meq Documented by: Pravastatin Sodium (Pravastatin Sodium 20 Mg Tablet) 20 mg PO BEDTIME [facility] Last Admin: 04/29/20 21:03 Dose: 20 mg Documented by: FEXOFENODINE 180 MG PO DAILY -- ( HOME MED) ALLERGIES epinephrine Adverse Reaction (Verified 03/24/19 16:13) lidocaine Adverse Reaction (Uncoded 03/24/19 16:13) DISCONTINUED MEDICATIONS 1). METOPROLOL 2). AMLODIPINE (NORVASC) 10 MG PO DAILY NEW PRESCRIPTIONS: AMPICILLIN 500 MG PO TID X 3 MORE DAYS MULTIVITAMIN 1 TABLET PO DAILY COREG 6.25 MG PO BID CLONIDINE 0.1 MG PO BID NORVASC 5 MG PO @ BEDTIME SMOKING: NON- APPLICABLE DISEASE SPECIFIC EDUCATION: DEMENTIA COVID UTI AMPICILLIN COREG CLONIDINE HYPOKALEMIA LAB REVIEW: 04/30/20 04:48 04/30/20 04:48 04/30/20 04:48: Sodium 136.4, Potassium 4.10, Chloride 106.7, Carbon Dioxide 26.5, Anion Gap 7.30, BUN 12.2, Creatinine 0.67, Estimated GFR (MDRD) 83.00, BUN/Creatinine Ratio 18.20, Glucose 89.8, Calcium 8.57, Total Bilirubin 0.47, AST 25.4, ALT 5.6, Alkaline Phosphatase 61.6, Total Protein 6.06 L, Albumin 3.06 L, Globulin 3.00, Albumin/Globulin Ratio 1.02 04/30/20 04:48: WBC 5.16, RBC 3.83 L, Hgb 11.5 L, Hct 34.8 L, MCV 90.9, MCH 30.0, MCHC 33.0, RDW Coeff of Max 12.2, Plt Count 272, Immature Gran % (Auto) 0.4, Neut % (Auto) 40.4 L, Lymph % (Auto) 40.9, [place] % (Auto) 13.8 H, Eos % (Auto) 3.9, Baso % (Auto) 0.6, Neut # (Auto) 2.1, Lymph # (Auto) 2.1, [place] # (Auto) 0.7, Eos # (Auto) 0.2, Baso # (Auto) 0.0, Immature Gran # (Auto) 0.0 PLAN: DISCHARGE HOME TODAY: TO RETURN TO [facility]. ACTIVITY: UP WITH ASSISTANCE OF ONE FOR SBA AND SUPERVISION. PT AND OT EVAL AND TREAT WITH IN-HOUSE THERAPY. CHECK B/P: DAILY AND FAX WEEKLY OR IF CONCERNS TO ROLANDO THOMPSON, CINDY @ [phone] DIET: REGULAR. ENCOURAGE NUTRITIONAL AND FLUID INTAKE. NEEDS CUES AND SUPERVISION. MD FOLLOW: DR. KAPOOR/ ROLANDO THOMPSON APRN/ JASBIR REINOSO APRN IN THE OFFICE ON FRIDAY, MAY 08, 2020 @ 1:30 PM. CODE STATUS: DO NOT RESUSCITATE. MRS. MCADAMS IS ALERT TO SELF ONLY. INITIALLY WAS NOT COOPERATIVE WITH CARE, HOWEVER THAT HAS SUBSIDED AND HAS BEEN TAKING HER MEDS MORE APPROPRIATLY. OCCASIONALLY SHE WILL REFUSES HER MEDICATIONS. NO REPORTS OF URINARY SYMPTOMS AT THIS TIME. NOW AND WITH HISTORY OF INCONTINECE OF URINE AND BOWELS. WEARS A DEPENDS. LAST BM 04/29. URINE CULTURE WITH PENDING GATO. NO REPORTS OF PAIN. NUTRITIONAL AND FLUID INTAKE FAIR WITH CUES AND SOME ASSISTANCE AT TIMES WITH INTAKE. SKIN WARM AND DRY AND INTACT. SHE GETS UP WITH A WALKER AND SBA AND SUPERVISION OF ONE. PT DID A CONSULT AND SHE DID TRANSFER AND AMBULATE, HOWEVER HAD DIFFICULTY FOLLOWING INSTRUCTIONS RELATED TO SAFE AMBULATIONS. SHE IS TO RETURN TO THE [facility]. MD ROLANDO WATKINS APRN ALYCE HANNAN, APRN
[2020-04-30 14:32] VITALS: BP 122/72
--- NOTE | 2020-05-01 10:32 | DS ---
DATE OF SERVICE: 04/30/20 FINAL DIAGNOSIS: 1. CHANGE IN MENTAL STATUS 2. HYPOTENSION- RESOLVED 3. WEIGHT LOSS 4. UTI- IMPROVED 5. GENERALIZED WEAKNESS 6. DEMENTIA WITH BEHAVIORAL DISTURBANCES 7. PARKINSON'S DISEASE 8. CHRONIC ANEMIA HX: 9. HYPERTENSION 10. CVA, 2011 11. ALZHEIMER'S DEMENTIA WITH BEHAVIOR DISTURBANCE 12. HYPOTHYROIDISM 13. PARKINSON'S (DR. VALDES) 14. ANEMIA 15. 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 ANXIETY 18. DEPRESSION 19. DYSLIPIDEMIA SURGICAL HX: 20. APPENDECTOMY 21. CATARACT EXTRACTION LAST VITALS Temp Pulse Resp BP Pulse Ox 98.1 F 86 16 155/75 H 97 04/30/20 05:42 04/30/20 08:00 04/30/20 08:00 04/30/20 05:42 04/30/20 05:42 DISCHARGE INSTRUCTIONS: 1. DISCHARGE HOME TODAY: TO RETURN TO THE [facility]. 2. MD FOLLOW: DR. KAPOOR/ROLANDO THOMPSON APRN/JASBIR REINOSO APRN IN THE OFFICE ON FRIDAY, MAY 08, 2020 @ 1:30 PM. 3. CHECK B/P: DAILY AND FAX WEEKLY OR IF CONCERNS TO ROLANDO THOMPSON APRN @ [phone] 4. CODE STATUS: DO NOT RESUSCITATE MEDICATIONS AT DISCHARGE: Acetaminophen (Acetaminophen 325 Mg Tablet) 500 MG mg PO Q4H PRN PRN Reason: Headache Alprazolam (Alprazolam 0.25 Mg Tablet) 0.25 mg PO 0800,1200,1700 PRN PRN Reason: Anxiety Amlodipine Besylate (Amlodipine Besylate 5 Mg Tablet) 5 mg PO BEDTIME MADELYN -- (CHANGED) Last Admin: 04/29/20 21:02 Dose: 5 mg Documented by: Ampicillin (Ampicillin Trihydrate 500 Mg Capsule) 500 mg PO TID MADELYN X 3 MORE DAYS -- ( NEW) Stop: 05/03/20 23:59 Last Admin: 04/30/20 05:44 Dose: 500 mg Documented by: Carbidopa/Levodopa (Carbidopa/Levodopa 10/100 Tablet) 1 tab PO TID MADELYN Last Admin: 04/29/20 21:02 Dose: 1 tab Documented by: Carvedilol (Carvedilol 6.25 Mg Tablet) 6.25 mg PO BIDWM [facility] -- (NEW) Last Admin: 04/29/20 17:22 Dose: 6.25 mg Documented by: Cholecalciferol (Cholecalciferol (Vitamin D3) 1,000 Unit Tablet) 1,000 unit PO DAILY [facility] Last Admin: 04/29/20 09:19 Dose: 1,000 unit Documented by: Clonidine (Clonidine Hcl 0.1 Mg Tablet) 0.1 mg PO BID [facility] -- (NEW) Last Admin: 04/29/20 21:02 Dose: 0.1 mg Documented by: Clopidogrel Bisulfate (Clopidogrel Bisulfate 75 Mg Tablet) 75 mg PO DAILY [facility] Last Admin: 04/29/20 09:20 Dose: 75 mg Documented by: Donepezil HCl (Donepezil Hcl 10 Mg Tablet) 10 mg PO DAILY [facility] Last Admin: 04/29/20 09:20 Dose: 10 mg Documented by: Megestrol Acetate (Megestrol Acetate 40 Mg Tablet) 40 mg PO DAILY [facility] Last Admin: 04/29/20 09:20 Dose: 40 mg Documented by: Multivitamins (Multivitamin 1 Tab) 1 tab PO DAILY [facility] -- (NEW) Last Admin: 04/29/20 09:20 Dose: 1 tab Documented by: Non-Formulary Medication (Antiox. [id number] ) 1 cap PO DAILY [facility] Last Admin: 04/29/20 09:18 Dose: Not Given Documented by: Non-Formulary Medication (Cyanocobalamin (Vitamin B-12) ) 1 cap PO DAILY [facility] Last Admin: 04/29/20 09:32 Dose: Not Given Documented by: Non-Formulary Medication ([id number]-Ast ) 350 mg PO DAILY [facility] Last Admin: 04/29/20 09:33 Dose: Not Given Documented by: Non-Formulary Medication (Pimavanserin ) 34 mg PO 1800 [facility] Last Admin: 04/29/20 17:22 Dose: 34 mg Documented by: Oxybutynin Chloride (Oxybutynin Chloride 5 Mg Tablet) 15 mg PO DAILYWM [facility] Last Admin: 04/29/20 09:20 Dose: 15 mg Documented by: Paroxetine HCl (Paroxetine Hcl 20 Mg Tablet) 20 mg PO BEDTIME [facility] Last Admin: 04/29/20 21:03 Dose: 20 mg Documented by: Potassium Chloride (Potassium Chloride 20 Meq Tab) 20 meq PO BIDWM [facility] Last Admin: 04/29/20 17:22 Dose: 20 meq Documented by: Pravastatin Sodium (Pravastatin Sodium 20 Mg Tablet) 20 mg PO BEDTIME [facility] Last Admin: 04/29/20 21:03 Dose: 20 mg Documented by: FEXOFENODINE 180 MG PO DAILY -- ( HOME MED) NEW PRESCRIPTIONS: AMPICILLIN 500 MG PO TID X 3 MORE DAYS MULTIVITAMIN 1 TABLET PO DAILY COREG 6.25 MG PO BID CLONIDINE 0.1 MG PO BID NORVASC 5 MG PO @ BEDTIME DISCONTINUED MEDICATIONS: METOPROLOL AMLODIPINE (NORVASC) 10 MG PO DAILY DIET INSTRUCTIONS: REGULAR. ENCOURAGE NUTRITIONAL AND FLUID INTAKE. NEEDS CUES AND SUPERVISION. ACTIVITY: UP WITH ASSISTANCE OF ONE FOR SBA AND SUPERVISION. PT AND OT EVAL AND TREAT WITH IN-HOUSE THERAPY. SMOKING: NON-APPLICABLE DISEASE SPECIFIC EDUCATION: DEMENTIA COVID UTI AMPICILLIN COREG CLONIDINE HYPOKALEMIA HOSPITAL COURSE: This is a white female who was a direct admit from our office. She presented with extreme hypotension, lethargy, worsening mental status. She was admitted, showed mild dehydration. She had also prior to coming to our office had a syncopal episode which was noted at her assisted living facility. She was admitted. Bilateral carotid scan was done which showed no significant stenosis. CT of the brain was done which showed chronic changes, nothing acute. We started her on Normal Saline at 83 cc/hr IV to help with the hypotension. Discontinued her Metoprolol, discontinued her Norvasc. After a few days with rehydration then her blood pressure began to increase again. She was started on Coreg 6.25 b.i.d. discontinued with the Metoprolol. Norvasc 5 mg we started at night only. Clonidine 0.1 mg b.i.d. p.r.n. Blood pressure has been well-controlled. Everything else checks out. She was evaluated by PT and OT. I felt that she could benefit from Physical Therapy. She is a fall risk. She has showed some improvement, started eating better. She had significant weight loss prior to admission. She is on Megace, will continue this. UA was abnormal showing UTI. She was treated with Rocephin for three days then put on oral Ampicillin. The GATO is still pending. She will be discharged back to the memory care facility. They will check her blood pressure daily and fax the results to us. Will continue with Ampicillin 500 t.i.d. for the next four days to complete a week of antibiotics. She will followup with us in the office in two weeks. TIME SPENT: More than 60 minutes. JASON
--- NOTE | 2020-05-01 10:40 | PN ---
DATE OF SERVICE: 04/28/2020 SUBJECTIVE: 89 year old white female hospitalized with change in the mental status and hypotension. The patient is feeling better, feeding herself some. She is still sleepy in the morning. REVIEW OF SYSTEMS: CONSTITUTIONAL: No night sweats. No fatigue, malaise, lethargy. No fever or chills. HEENT: Eyes: No visual changes. No eye pain. No eye discharge. ENT: No runny nose. No epistaxis. No sinus pain. No sore throat. No odynophagia. No congestion. RESPIRATORY: No cough, no congestion. No hemoptysis. No shortness of breath. CARDIOVASCULAR: No angina symptoms. No CHF symptoms. No atypical chest pain for CAD. No palpitations. No PND. No orthopnea. GASTROINTESTINAL: No abdominal pain. No nausea or vomiting. No diarrhea or constipation. No hematemesis. No hematochezia. GENITOURINARY: No urgency. No frequency. No dysuria. No hematuria. No obstructive symptoms. No discharge. No pain. No significant abnormal bleeding. MUSCULOSKELETAL: No musculoskeletal pain; no joint swelling. NEUROLOGICAL: No headache. No neck pain. No syncope. No seizures. No dizziness. PSYCHIATRIC: Not anxious. No depression. No suicidal thoughts. No homicidal thoughts. SKIN: No rash. No lesions. No wounds. ENDOCRINE: No unexplained weight loss. No weight gain. HEMATOLOGIC/LYMPHATIC: No anemia. No purpura. No petechiae. No prolonged or excessive bleeding. No palpable lymph nodes. PHYSICAL EXAMINATION: VITAL SIGNS: Temperature 97.7, pulse 85, respiratory rate 20, blood pressure 160/72 and pulse ox 97%. HEENT: Head normocephalic, atraumatic. Eyes: Extraocular muscles are intact. Pupils are equal, round and reactive to light and accommodation. Ears: No lesions. Nose appeared normal. Throat: No exudate or erythema. NECK: Supple. No JVD, no carotid bruit. No lymphadenopathy or thyromegaly. LUNGS: Decreased breath sounds but clear to auscultation. Percussion note normal. Chest symmetrical. HEART: S1, S2, no S3. No murmurs. No cyanosis or clubbing. No ascites. Pulses: Dorsalis pedis and posterior tibial pulses +1 to +2 bilaterally. ABDOMEN: Soft. Nontender. Bowel sounds active. No CVA tenderness. No mass felt. EXTREMITIES: No edema. Full range of motion of all extremities, equal. NEUROLOGIC: No focal deficit. Cranial nerves II through XII are grossly intact. No headache, no double vision or headache. SKIN: Not dry. Intact. Turgor - normal. LYMPHATIC: No palpable lymph nodes/no lymphedema. MUSCULOSKELETAL: Normal joints with no swelling. Muscle tone is normal. LABS: hgb 12, hct 36, WBC 5,300 normal differential, creatinine 0.6, BUN 9, potassium 3.6. ASSESSMENT: 1. Parkinson's disease with change in the mental status likely from dehydration. Poor oral status, seems to have improved. PLAN: 1. She was taken off some of the medication but will be reassessed. Her systolic blood pressure is staying over 140, 130, 140 and 150. 2. The patient is also followed by Neurologist, Dr. Reyes. We will make sure that we will get her an appointment with Dr. Reyes. Dr. Reyes hasn't seen her in last 6-8 months because of COVID. TIME SPENT: More than 30 minutes. Plan and coordination of the patient's care discussed in the presence of nurse. JASON
--- NOTE | 2020-05-01 11:32 | PN ---
DATE OF SERVICE: 04/29/2020 SUBJECTIVE: 89 year old white female hospitalized with change in the mental status. The patient is sleepy especially in the morning. Parkinson medication to be taken at 6 o'clock with her supper. We will also restart her Clonidine 0.1mg twice a day. Blood pressure systolic was 155. This morning she fed herself for breakfast. REVIEW OF SYSTEMS: CONSTITUTIONAL: No night sweats. No fatigue, malaise, lethargy. No fever or chills. Sleepy. HEENT: Eyes: No visual changes. No eye pain. No eye discharge. ENT: No runny nose. No epistaxis. No sinus pain. No sore throat. No odynophagia. No congestion. RESPIRATORY: No cough, no congestion. No hemoptysis. No shortness of breath. CARDIOVASCULAR: No angina symptoms. No CHF symptoms. No atypical chest pain for CAD. No palpitations. No PND. No orthopnea. GASTROINTESTINAL: No abdominal pain. No nausea or vomiting. No diarrhea or constipation. No hematemesis. No hematochezia. GENITOURINARY: No urgency. No frequency. No dysuria. No hematuria. No obstructive symptoms. No discharge. No pain. No significant abnormal bleeding. MUSCULOSKELETAL: No musculoskeletal pain; no joint swelling. NEUROLOGICAL: No headache. No neck pain. No syncope. No seizures. No dizziness. Confusion. PSYCHIATRIC: Not anxious. No depression. No suicidal thoughts. No homicidal thoughts. SKIN: No rash. No lesions. No wounds. ENDOCRINE: No unexplained weight loss. No weight gain. HEMATOLOGIC/LYMPHATIC: No anemia. No purpura. No petechiae. No prolonged or excessive bleeding. No palpable lymph nodes. PHYSICAL EXAMINATION: VITAL SIGNS: Temperature 98.7, pulse 90, respiratory rate 16, blood pressure 155/84 and pulse ox 98% on room air. HEENT: Head normocephalic, atraumatic. Eyes: Extraocular muscles are intact. Pupils are equal, round and reactive to light and accommodation. Ears: No lesions. Nose appeared normal. Throat: No exudate or erythema. NECK: Supple. No JVD, no carotid bruit. No lymphadenopathy or thyromegaly. LUNGS: Decreased breath sounds but clear to auscultation. Percussion note normal. Chest symmetrical. HEART: S1, S2, no S3. No murmurs. No cyanosis or clubbing. No ascites. Pulses: Dorsalis pedis and posterior tibial pulses +1 to +2 bilaterally. ABDOMEN: Soft. Nontender. Bowel sounds active. No CVA tenderness. No mass felt. EXTREMITIES: No edema. Full range of motion of all extremities, equal. NEUROLOGIC: No focal deficit. Cranial nerves II through XII are grossly intact. No headache, no double vision or headache. No tremors noted. SKIN: Not dry. Intact. Turgor - normal. LYMPHATIC: No palpable lymph nodes/no lymphedema. MUSCULOSKELETAL: Normal joints with no swelling. Muscle tone is normal. LABS: Hgb 12.4, hct 37, WBC 5,200 with normal differential, creatinine 0.6, BUN 11, potassium 3.8. Liver profile normal ASSESSMENT: 1. Improvement in the mental status even the family noted that 2. Hydration status has improved 3. Hypertension PLAN: 1. Restart Clonidine 0.1mg twice a day 2. Change one the Parkinson's medication Nuplazid to 6 o'clock, may cause some drowsiness. 3. The patient had an echocardiogram done which showed normal LV contractility, Normal valvular structure CARDIOVASCULAR STATUS: Stable with no contribution to weakness or drowsiness. Very likely lack of energy is combination of aging process along with Parkinson's disease TIME SPENT: More than 30 minutes. Plan and coordination of the patient's care discussed in the presence of nurse. JASON
--- NOTE | 2020-05-01 13:24 | HP ---
DATE OF SERVICE: 04/24/2020 REASON FOR HOSPITALIZATION/HISTORY OF PRESENT ILLNESS: 89 year old white female having syncopal episodes, weight loss and lethargic. No signs or symptoms of CHF/CAD/COVID. Lives at [place], [place]. Vomited and lethargic. PAST MEDICAL HISTORY: Alzheimer's Disease with behavioral disturbances History of failure to thrive Dr. Eric Freeman spine Anemia Anxiety/Depression Dyslipidemia B12 deficiency Osteoarthritis Hypothyroidism PAST SURGICAL HISTORY: Status post hysterectomy REVIEW OF SYSTEMS: CONSTITUTIONAL: No fever, Fatigue. HEENT: No sinus drainage, no sore throat. RESPIRATORY: No cough, no congestion. CARDIOVASCULAR: No atypical chest pain for coronary artery disease. No angina, CHF symptoms, palpitations or shortness of breath. GASTROINTESTINAL: No melena or abdominal pain. No GERD. Vomiting times one GENITOURINARY: No hematuria, no prostatism, no polyuria. DOOR PERSON: Blackout, no dizziness, no headache, no double vision. GAIT:Wheelchair MUSCULOSKELETAL: Osteoarthritis pain, no joint swelling. ENDOCRINE: No weight loss, no weight gain. SKIN: Not dry, no rash. PSYCHIATRIC: Anxious, no depression, no suicidal thoughts, no homicidal thoughts. SOCIAL HISTORY: Marital Status: . Alcohol Usage: No. Tobacco Usage: No. FAMILY HISTORY: Father: Dementia Mother: CVA Sister: Lung cancer from smoking/ colon cancer MEDICATIONS: Nuplazid 34mg PO bedtime Vitamin B 12 500mcg PO daily I-Caps one capsule PO daily Vitamin D3 one capsule PO daily Pravachol 20mg PO bedtime Megestrol 40mg PO daily Acetaminophen 500mg PO Q 4 hours PRN Paxil 30mg BEDTIME Plavix 75mg PO daily Calcium one capsule PO daily Oxybutynin Chloride 15mg PO daily Metoprolol Tartrate 25mg PO BID Sinemet 10-100mg PO TID Amlodipine 10mg PO daily Aricept 10mg PO daily MegaRed Cardwell-3 Krill Oil 350mg PO daily Alprazolam 0.25mg PO 0800, 1200, 1700 Klor-conM20 20mg PO BID ALLERGIES: Lidocaine Epinephrine PHYSICAL EXAMINATION: V/S: Pulse 50, Blood pressure 100/58, temperature 97.5, oxygen saturation 93%. Height 5'3, weight unable GENERAL APPEARANCE: Oriented to person only. HEENT: Pale, dry mucous membrane. NECK: No JVP, no bruits. RESPIRATORY: Decreased breath sounds. CARDIOVASCULAR: S1, S2, no S3, no murmur. No cyanosis, clubbing. No ascites. GI/ABDOMEN: No tenderness. Bowel sounds are active. EXTREMITIES: Trace edema, pulses +1, equal. DOOR PERSON: Deep tendon reflexes, sensory, motor and gait all normal. RECTAL: 2013/PELVIC: Refused. ASSESSMENT: 1. Change in mental status 2. Hypotension 3. Weight loss 4. Hypertension 5. Alzheimer's Disease with behavioral disturbances 6. History of failure to thrive 7. Dr. Eric Freeman 8. DJD spine 9. Anemia 10.Anxiety/Depression 11.Dyslipidemia 12.B12 deficiency 13.Osteoarthritis 14.Hypothyroidism PLAN: 1. Admit 2. Routine telemetry orders 3. No cardiac enzymes 4. CBC, CMP now and daily 5. T4, TSH times one 6. Chest x-ray 7. U/A and culture 8. Metoprolol only 25mg Q HS 9. Discontinue Amlodipine 10.Xanax is PRN 11.A1c 12.Normal saline IV @ 75cc/hour 13.ABG times one on room air. 14.O2 nasal cannula at 1-2 liters PRN 15.Regular diet 16.Fall precautions 17.The patient is DNR. TIME SPENT: More than 70 minutes. MTDD
--- NOTE | 2020-05-01 13:31 | PN ---
DATE OF SERVICE: 04/30/20 SUBJECTIVE: Ms. Whaley was discharged today. The patient's condition has improved some. She is able to feed herself, is more alert. Cardiovascular status is stable. See the discharge summary done by nurse practitioner. The patient was seen and examined with the nurse practitioner. TIME SPENT: More than 30 minutes. Plan and coordination of the patient's care discussed in the presence of nurse. JASON
--- NOTE | 2020-05-01 13:34 | PN ---
BILLING 04/24/20 ADMISSION DAY LEVEL 5 04/25/20 INTERMEDIATE 04/26/20 INTERMEDIATE 04/27/20 INTERMEDIATE 04/28/20 INTERMEDIATE 04/29/20 INTERMEDIATE 04/30/20 DISCHARGE MTDD
== END 2020-04-30 15:50 | disposition other institution (70) | DRG 948 ==
LOC: MEDSURG B 16:08
PROVIDERS: ADMIT Internal Medicine; ATTEND Internal Medicine